=== PATIENT | female | born 1985 | race American Indian/Alaskan Native ===

== ENCOUNTER 2016-09-06 18:51 | Emergency (ER) | payer MEDICAID, OTHER ==
[2016-09-06 18:48] VITALS: BP 132/78
--- NOTE | 2016-09-06 18:55 | EDM.PDOC ---
ED HPI GENERAL MEDICAL PROBLEM - General Stated Complaint: SEIZURES, COMING BY AMBULANCE Time Seen by Provider: 09/06/16 18:50 Source of Information: Reports: Patient History Limitations: Reports: No Limitations - History of Present Illness INITIAL COMMENTS - FREE TEXT/NARRATIVE: states has h/o seizure, taking her dilantin. today @ work all the flashing lights and noise made her felt weird like a seizure is coming on, she went to her locker took another dilantin but still felt same. presently feeling ok. Headache Pain Score (Numeric/FACES): 5 - Related Data Allergies Allergy/AdvReac Type Severity Reaction Status Date / Time No Known Allergies Allergy Verified 09/06/16 19:02 Home Meds: Home Meds Acetaminophen [Tylenol] 650 mg PO Q6H PRN #3 tablet 09/06/15 [Rx] Phenytoin 100 mg PO TID 09/06/16 [History] Vit #108/Iron/FA [ One Tablet] 1 each PO DAILY 09/06/16 [ History] Past Medical History - Past Health History Medical/Surgical History: Denies Medical/Surgical History [employer] History: Reports: Other OB/BYN History: LMP: 12-02-2014 EDC: 09-08-2015 Musculoskeletal History: Reports: Fracture Other Musculoskeletal History: left forearm Neurological History: Reports: Seizure Psychiatric History: Reports: Addiction, Anxiety, Panic Attack - Infectious Disease History Infectious Disease History: Reports: Chicken Pox - Past Surgical History GI Surgical History: Reports: Cholecystectomy Neurological Surgical History: Reports: None Social & Family History - Family History Family Medical History: Noncontributory Respiratory: Reports: TB Other Respiratory Family Hisory: mother - Tobacco Use Smoking Status *Q: Never Smoker Years of Tobacco use: 13 Packs/Tins Daily: 0.1 Second Hand Smoke Exposure: No - Recreational Drug Use Recreational Drug Use: Yes Drug Use in Last 12 Months: Yes Recreational Drug Type: Reports: Marijuana/Hashish Recreational Drug Use Frequency: Socially ED ROS GENERAL - Review of Systems Review Of Systems: ROS reveals no pertinent complaints other than HPI. - Physical Exam Exam: See Below Exam Limited By: No Limitations General Appearance: Alert, WD/WN, Mild Distress, Other (distraught) Eye Exam: Bilateral Eye: PERRL (pupils ess ER @ 4mm) Ears: Hearing Grossly Normal Throat/Mouth: Normal Voice, No Airway Compromise Head Exam: Atraumatic Neck: Non-Tender, Full Range of Motion Respiratory/Chest: No Respiratory Distress Cardiovascular: Regular Rate, Rhythm GI/Abdominal: Soft, Non-Tender Neuro Exam (Abbreviated): Alert, Oriented, Normal Cognition, Normal Gait, No Motor/Sensory Deficits Psychiatric: Flat Affect Skin Exam: Warm, Dry, Normal Color Course - Vital Signs Last Recorded V/S: Last Vital Signs Temp 36.0 C 09/06/16 18:47 Pulse 68 09/06/16 18:47 Resp 20 09/06/16 18:47 BP 132/78 09/06/16 18:47 Pulse Ox 100 09/06/16 18:47 - Orders/Labs/Meds Labs: Laboratory Tests 09/06/16 09/06/16 09/06/16 Range/Units 19:10 19:10 19:10 WBC (5.0-10.0) 10^3/uL RBC (4.2-5.4) 10^6/uL Hgb (12.0-16.0) g/dL Hct (37.0-47.0) % MCV (80-100) fL MCH (27.0-34.0) pg MCHC (33.0-35.0) g/dL Plt Count (150-450) 10^3/uL Neut % (Auto) (42.2-75.2) % Lymph % (Auto) (20.5-50.1) % [facility] % (Auto) (2-8) % Eos % (Auto) (1.0-3.0) % Baso % (Auto) (0.0-1.0) % Sodium (135-145) mmol/L Potassium (3.6-5.0) mmol/L Chloride (101-111) mmol/L Carbon Dioxide (21.0-31.0) mmol/L Anion Gap BUN (7-18) mg/dL Creatinine (0.6-1.3) mg/dL Est Cr Clr Drug Dosing mL/min Estimated GFR (MDRD) BUN/Creatinine Ratio Glucose (74-105) mg/dL Calcium (8.4-10.2) mg/dl Total Bilirubin (0.2-1.0) mg/dL AST (10-42) IU/L ALT (10-60) IU/L Alkaline Phosphatase (42-121) IU/L Total Protein (6.7-8.2) g/dl Albumin (3.2-5.5) g/dl Globulin Albumin/Globulin Ratio Urine Color Yellow (YELLOW) Urine Appearance Slightly cloudy (CLEAR) Urine pH 5.5 (5.0-9.0) Ur Specific [place] <= 1.005 (1.005-1.030) Urine Protein Negative (NEGATIVE) Urine Glucose (UA) Negative (NEGATIVE) Urine Ketones Negative (NEGATIVE) Urine Occult Blood Negative (NEGATIVE) Urine Nitrite Negative (NEGATIVE) Urine Bilirubin Negative (NEGATIVE) Urine Urobilinogen 0.2 (0.2-1.0) mg/dL Ur Leukocyte Esterase Trace H (NEGATIVE) Urine HCG, Qual Negative Urine Opiates Screen Negative (NEGATIVE) Ur Oxycodone Screen Negative (NEGATIVE) Urine Methadone Screen Negative (NEGATIVE) Ur Barbiturates Screen Positive H (NEGATIVE) Phenytoin (10-20) ug/dL U Tricyclic Antidepress Negative (NEGATIVE) Ur Phencyclidine Scrn Negative (NEGATIVE) Ur Amphetamine Screen Negative (NEGATIVE) U Methamphetamines Scrn Negative (NEGATIVE) Urine MDMA Screen Negative (NEGATIVE) U Benzodiazepines Scrn Negative (NEGATIVE) Urine Cocaine Screen Negative (NEGATIVE) U Marijuana (THC) Screen Negative (NEGATIVE) 09/06/16 09/06/16 Range/Units 19:14 19:14 WBC 14.0 H (5.0-10.0) 10^3/uL RBC 5.03 (4.2-5.4) 10^6/uL Hgb 14.6 (12.0-16.0) g/dL Hct 43.6 (37.0-47.0) % MCV 86.7 (80-100) fL MCH 29.0 (27.0-34.0) pg MCHC 33.5 (33.0-35.0) g/dL Plt Count 396 (150-450) 10^3/uL Neut % (Auto) 69.2 (42.2-75.2) % Lymph % (Auto) 21.8 (20.5-50.1) % [facility] % (Auto) 7.1 (2-8) % Eos % (Auto) 1.8 (1.0-3.0) % Baso % (Auto) 0.1 (0.0-1.0) % Sodium 141 (135-145) mmol/L Potassium 3.6 (3.6-5.0) mmol/L Chloride 105 (101-111) mmol/L Carbon Dioxide 27.0 (21.0-31.0) mmol/L Anion Gap 12.6 BUN 13 (7-18) mg/dL Creatinine 0.6 (0.6-1.3) mg/dL Est Cr Clr Drug Dosing 124.49 mL/min Estimated GFR (MDRD) > 60 BUN/Creatinine Ratio 21.66 Glucose 100 (74-105) mg/dL Calcium 9.2 (8.4-10.2) mg/dl Total Bilirubin 0.3 (0.2-1.0) mg/dL AST 23 (10-42) IU/L ALT 50 (10-60) IU/L Alkaline Phosphatase 132 H (42-121) IU/L Total Protein 8.2 (6.7-8.2) g/dl Albumin 4.3 (3.2-5.5) g/dl Globulin 3.9 Albumin/Globulin Ratio 1.10 Urine Color (YELLOW) Urine Appearance (CLEAR) Urine pH (5.0-9.0) Ur Specific [place] (1.005-1.030) Urine Protein (NEGATIVE) Urine Glucose (UA) (NEGATIVE) Urine Ketones (NEGATIVE) Urine Occult Blood (NEGATIVE) Urine Nitrite (NEGATIVE) Urine Bilirubin (NEGATIVE) Urine Urobilinogen (0.2-1.0) mg/dL Ur Leukocyte Esterase (NEGATIVE) Urine HCG, Qual Urine Opiates Screen (NEGATIVE) Ur Oxycodone Screen (NEGATIVE) Urine Methadone Screen (NEGATIVE) Ur Barbiturates Screen (NEGATIVE) Phenytoin 7.4 L (10-20) ug/dL U Tricyclic Antidepress (NEGATIVE) Ur Phencyclidine Scrn (NEGATIVE) Ur Amphetamine Screen (NEGATIVE) U Methamphetamines Scrn (NEGATIVE) Urine MDMA Screen (NEGATIVE) U Benzodiazepines Scrn (NEGATIVE) Urine Cocaine Screen (NEGATIVE) U Marijuana (THC) Screen (NEGATIVE) - Re-Assessments/Exams Free Text/Narrative Re-Assessment/Exam: 09/06/16 20:02 re-exam; sleeping arousable no c/o. results discussed with pt. Departure - Departure Time of Disposition: 20:03 Disposition: Home, Self-Care 01 Condition: Good Clinical Impression: Seizure disorder, Subtherapeutic phenytoin level - Discharge Information Instructions: Epilepsy, [id number] Forms: ED Department Discharge Additional Instructions: 1) take 2 extra dilantin tonight 2) rest 3) follow up at clinic or recheck as needed
[2016-09-06 19:39] LABS: CHLORIDE,CL 105 mmol/L (101-111); SODIUM,NA 141 mmol/L (135-145)
== END 2016-09-06 20:10 | disposition home or self-care (01) ==
LOC: DL.ED 18:51
DX: G40.909 Epilepsy, unspecified, not intractable, without status epilepticus (principal); R79.89 Other specified abnormal findings of blood chemistry; Z90.49 Acquired absence of other specified parts of digestive tract
CPT/HCPCS: 36415; 80053; 80185; 80305; 81003; 81025; 85025; 99285

== ENCOUNTER 2016-11-19 18:19 | Emergency (ER) | payer OTHER ==
[2016-11-19 20:02] VITALS: BP 117/67
== END 2016-11-19 19:26 | disposition left against medical advice (07) ==
LOC: DL.ED 18:19
DX: Z53.21 Procedure and treatment not carried out due to patient leaving prior to being seen by health care provider (principal)

== ENCOUNTER 2017-06-06 12:44 | Emergency (ER) | payer MEDICAID, OTHER ==
[2017-06-06] MEDS ORDERED: Phenytoin 1,000 MG in Sodium Chloride 0.9% 100 ML IV ONE (13:43)
[2017-06-06 14:19] LABS: ANION GAP 10.5; CHLORIDE,CL 104 mmol/L (101-111); SODIUM,NA 136 mmol/L (135-145)
--- NOTE | 2017-06-06 14:25 | EDM.PDOC ---
ED HPI GENERAL MEDICAL PROBLEM - General Chief Complaint: Neuro Symptoms/Deficits Stated Complaint: BY AMBULANCE Time Seen by Provider: 06/06/17 14:00 Source of Information: Reports: Patient, EMS, EMS Notes Reviewed, RN, RN Notes Reviewed - History of Present Illness INITIAL COMMENTS - FREE TEXT/NARRATIVE: Patient presents after a seizure x3 at home. Family called EMS and wanted patient seen. She has known seizure history. She has not been taking her meds per family. She was combative for BLS-ACLS called and 4mg IV Versed prior to transport was given to patient. No further seizure activtiy. Patient states she is taking her meds, last seizure 2 months ago. She has had nausea and vomiting after the Versed. No family avilable to determine length of seizure or proximity to each. Onset: Today Duration: Getting Worse Location: Reports: Generalized Severity: Moderate Improves with: Reports: None Worsens with: Reports: None Associated Symptoms: Reports: No Other Symptoms Head Pain Score (Numeric/FACES): 9 - Related Data Allergies Allergy/AdvReac Type Severity Reaction Status Date / Time No Known Allergies Allergy Verified 11/19/16 20:01 Home Meds: Home Meds Acetaminophen [Tylenol] 650 mg PO Q6H PRN #3 tablet 09/06/15 [Rx] Phenytoin 100 mg PO TID 09/06/16 [History] Past Medical History - Past Health History Medical/Surgical History: Denies Medical/Surgical History Cardiovascular History: Reports: Other (See Below) Other Cardiovascular History: hypokalemia [employer]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: 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: 12-02-2014 EDC: 09-08-2015 Musculoskeletal History: Reports: Fracture Other Musculoskeletal History: left forearm Neurological History: Reports: Seizure Psychiatric History: Reports: Addiction, Anxiety, Panic Attack - Infectious Disease History Infectious Disease History: Reports: Chicken Pox - Past Surgical History GI Surgical History: Reports: Cholecystectomy Neurological Surgical History: Reports: None Social & Family History - Family History Family Medical History: Noncontributory Respiratory: Reports: TB Other Respiratory Family Hisory: mother - Tobacco Use Smoking Status *Q: Unknown Ever Smoked Years of Tobacco use: 14 Packs/Tins Daily: 0.1 Second Hand Smoke Exposure: Yes - Caffeine Use Caffeine Use: Reports: Other - Recreational Drug Use Recreational Drug Use: No Drug Use in Last 12 Months: Yes Recreational Drug Type: Reports: Marijuana/Hashish Recreational Drug Use Frequency: Weekly ED ROS GENERAL - Review of Systems Review Of Systems: ROS reveals no pertinent complaints other than HPI. - Physical Exam Exam: See Below Exam Limited By: No Limitations General Appearance: Alert, Other (oriented) Eye Exam: Bilateral Eye: PERRL (3mm) Ears: Normal External Exam, Normal Canal, Hearing Grossly Normal, Normal TMs Nose: Normal Inspection, Normal Mucosa, No Blood Throat/Mouth: Normal Inspection, Normal Lips, Normal Teeth, Normal Gums, Normal Oropharynx, Normal Voice, No Airway Compromise Head Exam: Atraumatic, Normocephalic Neck: Normal Inspection, Supple, Non-Tender, Full Range of Motion Respiratory/Chest: No: Rales, Wheezing Cardiovascular: Regular Rate, Rhythm GI/Abdominal: Soft, Non-Tender (Female) Exam: Deferred Rectal (Female) Exam: Deferred Neuro Exam (Abbreviated): Alert, Oriented, Other (no sign of trauma.) Back Exam: Normal Inspection, Full Range of Motion, NT Extremities: Normal Inspection, Normal Range of Motion, Non-Tender, No Pedal Edema, Normal Capillary Refill Psychiatric: Other (irritable but cooperative.) Skin Exam: Other (no bruising) Course - Vital Signs Last Recorded V/S: Last Vital Signs Temp 98.6 F 06/06/17 13:25 Pulse 101 H 06/06/17 13:25 Resp 18 06/06/17 13:25 BP 154/84 H 06/06/17 13:25 Pulse Ox 98 06/06/17 13:25 - Orders/Labs/Meds Orders: Active Orders 24 hr Category Date Time Status DRUG SCREEN URINE BIORAD [URCHEM] Stat Lab 06/06/17 13:27 Ordered Labs: Laboratory Tests 06/06/17 06/06/17 06/06/17 Range/Units 13:27 13:27 13:55 WBC 17.8 H (5.0-10.0) 10^3/uL RBC 4.96 (4.2-5.4) 10^6/uL Hgb 14.4 (12.0-16.0) g/dL Hct 43.2 (37.0-47.0) % MCV 87.1 (80-100) fL MCH 29.0 (27.0-34.0) pg MCHC 33.3 (33.0-35.0) g/dL Plt Count 413 (150-450) 10^3/uL Neut % (Auto) 74.9 (42.2-75.2) % Lymph % (Auto) 18.1 L (20.5-50.1) % [place] % (Auto) 5.8 (2-8) % Eos % (Auto) 1.0 (1.0-3.0) % Baso % (Auto) 0.2 (0.0-1.0) % Add Manual Diff Yes Neutrophils % (Manual) 70 (42-75) % Band Neutrophils % 2 % Lymphocytes % (Manual) 22 (20-50) % Monocytes % (Manual) 5 (2-8) % Eosinophils % (Manual) 1 (1-3) % Sodium (135-145) mmol/L Potassium (3.6-5.0) mmol/L Chloride (101-111) mmol/L Carbon Dioxide (21.0-31.0) mmol/L Anion Gap BUN (7-18) mg/dL Creatinine (0.6-1.3) mg/dL Est Cr Clr Drug Dosing mL/min Estimated GFR (MDRD) BUN/Creatinine Ratio Glucose (74-105) mg/dL Calcium (8.4-10.2) mg/dl Total Bilirubin (0.2-1.0) mg/dL AST (10-42) IU/L ALT (10-60) IU/L Alkaline Phosphatase (42-121) IU/L Total Protein (6.7-8.2) g/dl Albumin (3.2-5.5) g/dl Globulin Albumin/Globulin Ratio Urine HCG, Qual Negative Urine Opiates Screen Negative (NEGATIVE) Ur Oxycodone Screen Negative (NEGATIVE) Urine Methadone Screen Negative (NEGATIVE) Ur Barbiturates Screen Positive H (NEGATIVE) Phenytoin (10-20) ug/dL U Tricyclic Antidepress Negative (NEGATIVE) Ur Phencyclidine Scrn Negative (NEGATIVE) Ur Amphetamine Screen Negative (NEGATIVE) U Methamphetamines Scrn Negative (NEGATIVE) Urine MDMA Screen Negative (NEGATIVE) U Benzodiazepines Scrn Negative (NEGATIVE) Urine Cocaine Screen Negative (NEGATIVE) U Marijuana (THC) Screen Positive H (NEGATIVE) Ethyl Alcohol mg/dL 06/06/17 06/06/17 Range/Units 13:55 13:55 WBC (5.0-10.0) 10^3/uL RBC (4.2-5.4) 10^6/uL Hgb (12.0-16.0) g/dL Hct (37.0-47.0) % MCV (80-100) fL MCH (27.0-34.0) pg MCHC (33.0-35.0) g/dL Plt Count (150-450) 10^3/uL Neut % (Auto) (42.2-75.2) % Lymph % (Auto) (20.5-50.1) % [place] % (Auto) (2-8) % Eos % (Auto) (1.0-3.0) % Baso % (Auto) (0.0-1.0) % Add Manual Diff Neutrophils % (Manual) (42-75) % Band Neutrophils % % Lymphocytes % (Manual) (20-50) % Monocytes % (Manual) (2-8) % Eosinophils % (Manual) (1-3) % Sodium 136 (135-145) mmol/L Potassium 3.5 L (3.6-5.0) mmol/L Chloride 104 (101-111) mmol/L Carbon Dioxide 25.0 (21.0-31.0) mmol/L Anion Gap 10.5 BUN 22 H (7-18) mg/dL Creatinine 0.5 L (0.6-1.3) mg/dL Est Cr Clr Drug Dosing 149.39 mL/min Estimated GFR (MDRD) > 60 BUN/Creatinine Ratio 44.00 Glucose 118 H (74-105) mg/dL Calcium 8.8 (8.4-10.2) mg/dl Total Bilirubin 0.6 (0.2-1.0) mg/dL AST 30 (10-42) IU/L ALT 65 H (10-60) IU/L Alkaline Phosphatase 123 H (42-121) IU/L Total Protein 8.2 (6.7-8.2) g/dl Albumin 4.2 (3.2-5.5) g/dl Globulin 4.0 Albumin/Globulin Ratio 1.05 Urine HCG, Qual Urine Opiates Screen (NEGATIVE) Ur Oxycodone Screen (NEGATIVE) Urine Methadone Screen (NEGATIVE) Ur Barbiturates Screen (NEGATIVE) Phenytoin 3.0 L (10-20) ug/dL U Tricyclic Antidepress (NEGATIVE) Ur Phencyclidine Scrn (NEGATIVE) Ur Amphetamine Screen (NEGATIVE) U Methamphetamines Scrn (NEGATIVE) Urine MDMA Screen (NEGATIVE) U Benzodiazepines Scrn (NEGATIVE) Urine Cocaine Screen (NEGATIVE) U Marijuana (THC) Screen (NEGATIVE) Ethyl Alcohol < 5 mg/dL Meds: Medications Discontinued Medications Generic Name Dose Route Start Last Admin Trade Name Freq PRN Reason Stop Dose Admin Phenytoin Sodium 1,000 mg/ 120 mls @ 240 mls/hr 06/06/17 13:43 06/06/17 14:05 Sodium Chloride IV 06/06/17 13:44 240 mls/hr ONETIME ONE Administration Departure - Departure Time of Disposition: 14:52 Disposition: Home, Self-Care 01 Condition: Fair Clinical Impression: Seizure, Seizure disorder, Subtherapeutic phenytoin level - Discharge Information Instructions: Seizure, Adult Forms: ED Department Discharge Additional Instructions: Take medication as prescribed Follow up Thursday with Primary care to recheck Dilantin level rest today - My Orders Last 24 Hours: My Active Orders 06/06/17 13:27 DRUG SCREEN URINE BIORAD [URCHEM] Stat - Assessment/Plan Last 24 Hours: My Active Orders 06/06/17 13:27 DRUG SCREEN URINE BIORAD [URCHEM] Stat
[2017-06-06 15:13] VITALS: BP 121/77
== END 2017-06-06 15:08 | disposition home or self-care (01) ==
LOC: DL.ED 12:44
DX: G40.909 Epilepsy, unspecified, not intractable, without status epilepticus (principal); R79.89 Other specified abnormal findings of blood chemistry; Z77.22 Contact with and (suspected) exposure to environmental tobacco smoke (acute) (chronic)
CPT/HCPCS: 36415; 80053; 80185; 80305; 81025; 85025; 96365; 99285; G0480; J1165; J7050; 99284

== ENCOUNTER 2017-06-06 15:24 | Emergency (ER) | payer MEDICAID, OTHER ==
[2017-06-06] MEDS ORDERED: LORazepam 2 MG/ML Syringe IM ONE (15:35)
[2017-06-06 15:41] VITALS: BP 122/83
--- NOTE | 2017-06-06 17:09 | EDM.PDOC ---
ED HPI GENERAL MEDICAL PROBLEM - General Chief Complaint: Neurological Problem Stated Complaint: 2ND VISIT Time Seen by Provider: 06/06/17 15:35 Source of Information: Reports: Patient History Limitations: Reports: No Limitations - History of Present Illness INITIAL COMMENTS - FREE TEXT/NARRATIVE: ED via [facility] with report of 3 seizures today. On arrival of BLS patient combative , alert. Patient given 4 mg ativan by EMS and Dilantin 1 gm IV during ED stay, c.o not feeling well after finding that aunt unable to pick her up right away and that she would be waiting in waiting room for her. Hand Pain Score (Numeric/FACES): 5 - Related Data Allergies Allergy/AdvReac Type Severity Reaction Status Date / Time No Known Allergies Allergy Verified 06/06/17 15:41 Home Meds: Home Meds Acetaminophen [Tylenol] 650 mg PO Q6H PRN #3 tablet 09/06/15 [Rx] Phenytoin 100 mg PO TID 09/06/16 [History] Past Medical History - Past Health History Medical/Surgical History: Denies Medical/Surgical History HEENT History: Reports: None Cardiovascular History: Reports: Other (See Below) Other Cardiovascular History: hypokalemia Respiratory History: Reports: None Gastrointestinal History: Reports: None Genitourinary History: Reports: None [employer]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: 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: 12-02-2014 EDC: 09-08-2015 Musculoskeletal History: Reports: Fracture Other Musculoskeletal History: left forearm Neurological History: Reports: Seizure Psychiatric History: Reports: Addiction, Anxiety, Panic Attack Endocrine/Metabolic History: Reports: None Hematologic History: Reports: None Immunologic History: Reports: None Oncologic (Cancer) History: Reports: None Dermatologic History: Reports: None - Infectious Disease History Infectious Disease History: Reports: Chicken Pox - Past Surgical History GI Surgical History: Reports: Cholecystectomy Neurological Surgical History: Reports: None Social & Family History - Family History Family Medical History: Noncontributory Respiratory: Reports: TB Other Respiratory Family Hisory: mother - Tobacco Use Smoking Status *Q: Current Every Day Smoker Years of Tobacco use: 11 Packs/Tins Daily: 0.5 Second Hand Smoke Exposure: No - Caffeine Use Caffeine Use: Reports: None - Recreational Drug Use Recreational Drug Use: No Drug Use in Last 12 Months: Yes Recreational Drug Type: Reports: Marijuana/Hashish Recreational Drug Use Frequency: Weekly ED ROS GENERAL - Review of Systems Review Of Systems: ROS reveals no pertinent complaints other than HPI. - Physical Exam Exam: See Below Exam Limited By: No Limitations General Appearance: Alert, Anxious Eye Exam: Bilateral Eye: EOMI, PERRL Ears: Normal External Exam Nose: Normal Inspection Throat/Mouth: Normal Inspection Head Exam: Atraumatic, Normocephalic Neck: Normal Inspection Respiratory/Chest: No Respiratory Distress, Lungs Clear, Normal Breath Sounds Cardiovascular: Normal Peripheral Pulses, Regular Rate, Rhythm GI/Abdominal: Normal Bowel Sounds Neuro Exam (Abbreviated): Alert, Oriented, Normal Cognition, Other (Answers questions appropriately, follows directions easily, good response time, Twitching absent with distraction') Course - Vital Signs Last Recorded V/S: Last Vital Signs Temp 97.8 F 06/06/17 15:35 Pulse 88 06/06/17 15:35 Resp 20 06/06/17 15:35 BP 122/83 06/06/17 15:35 Pulse Ox 100 06/06/17 15:35 - Orders/Labs/Meds Labs: Laboratory Tests 06/06/17 Range/Units 15:32 POC Glucose 110 H (70-105) mg/dl Meds: Medications Discontinued Medications Generic Name Dose Route Start Last Admin Trade Name Justin PRN Reason Stop Dose Admin Lorazepam 0.5 mg 06/06/17 15:35 06/06/17 15:45 Ativan IM 06/06/17 15:36 0.5 mg ONETIME ONE Administration Departure - Departure Time of Disposition: 15:55 Disposition: Home, Self-Care 01 Clinical Impression: Seizure disorder - Discharge Information Instructions: Seizure, Adult, [id number] Forms: ED Department Discharge Additional Instructions: Rest Take medications as prescribed
== END 2017-06-06 17:20 | disposition home or self-care (01) ==
LOC: DL.ED 15:24
DX: G40.909 Epilepsy, unspecified, not intractable, without status epilepticus (principal); F17.210 Nicotine dependence, cigarettes, uncomplicated
CPT/HCPCS: 82962; 96372; 99284; J2060; 99283

== ENCOUNTER 2017-07-23 06:37 | Emergency (ER) | payer MEDICAID, OTHER ==
[2017-07-23 06:42] VITALS: BP 102/55
[2017-07-23] MEDS ORDERED: Phenytoin 100 MG Cap.ER PO ONE (07:20)
--- NOTE | 2017-07-23 07:26 | EDM.PDOC ---
ED HPI GENERAL MEDICAL PROBLEM - General Chief Complaint: Neurological Problem Stated Complaint: IN BY AMBULANCE Time Seen by Provider: 07/23/17 07:26 Source of Information: Reports: Patient, Old Records, RN, RN Notes Reviewed History Limitations: Reports: No Limitations - History of Present Illness INITIAL COMMENTS - FREE TEXT/NARRATIVE: Pt arrives by ambulance with report of a witnessed seizure. Pt has a history of epilepsy and has been out of her dilantin x6 days. She has taken some phenobarbital from her aunt. She denies any injury. EMS and loan servicing officer report pt had approx. 30 min. postictal phase. Pt has no complaints at this time. The duration of the seizure is unknown, but not believed to be more than one minute per pt and EMS report. Onset: Today Duration: Chronic Location: Reports: Generalized Severity: Moderate Improves with: Reports: None Worsens with: Reports: None Associated Symptoms: Reports: No Other Symptoms - Related Data Allergies Allergy/AdvReac Type Severity Reaction Status Date / Time No Known Allergies Allergy Verified 06/06/17 15:41 Home Meds: Home Meds Acetaminophen [Tylenol] 650 mg PO Q6H PRN #3 tablet 09/06/15 [Rx] Phenytoin 100 mg PO TID 09/06/16 [History] Past Medical History - Past Health History Medical/Surgical History: Denies Medical/Surgical History HEENT History: Reports: None Cardiovascular History: Reports: Other (See Below) Other Cardiovascular History: hypokalemia Respiratory History: Reports: None Gastrointestinal History: Reports: None Genitourinary History: Reports: None 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 OB/BYN History: LMP: 12-02-2014 EDC: 09-08-2015 Musculoskeletal History: Reports: Fracture Other Musculoskeletal History: left forearm Neurological History: Reports: Seizure Psychiatric History: Reports: Addiction, Anxiety, Panic Attack Endocrine/Metabolic History: Reports: None Hematologic History: Reports: None Immunologic History: Reports: None Oncologic (Cancer) History: Reports: None Dermatologic History: Reports: None - Infectious Disease History Infectious Disease History: Reports: Chicken Pox - Past Surgical History GI Surgical History: Reports: Cholecystectomy Neurological Surgical History: Reports: None Social & Family History - Family History Family Medical History: Noncontributory Respiratory: Reports: TB Other Respiratory Family Hisory: mother - Caffeine Use Caffeine Use: Reports: None - Living Situation & Occupation Living situation: Reports: with Family Occupation: Unemployed ED ROS GENERAL - Review of Systems Review Of Systems: ROS reveals no pertinent complaints other than HPI. - Physical Exam Exam: See Below Exam Limited By: No Limitations General Appearance: Alert, WD/WN, No Apparent Distress, Obese Eye Exam: Bilateral Eye: EOMI, Normal Inspection, PERRL Ears: Normal External Exam, Normal Canal, Hearing Grossly Normal, Normal TMs Nose: Normal Inspection, Normal Mucosa, No Blood Throat/Mouth: Normal Lips, Normal Oropharynx, Normal Voice, No Airway Compromise. No: Evidence of Tongue Biting Head Exam: Atraumatic, Normocephalic Neck: Normal Inspection, Supple, Non-Tender, Full Range of Motion Respiratory/Chest: No Respiratory Distress, Lungs Clear, Normal Breath Sounds, No Accessory Muscle Use, Chest Non-Tender Cardiovascular: Normal Peripheral Pulses, Regular Rate, Rhythm, No Edema, No Gallop, No JVD, No Murmur, No Rub GI/Abdominal: Normal Bowel Sounds, Soft, Non-Tender, No Distention, Other ( benign obese abdomen) (Female) Exam: Deferred Rectal (Female) Exam: Deferred Neuro Exam (Abbreviated): Alert, Oriented, CN II-XII Intact, Normal Cognition, Normal Gait, No Motor/Sensory Deficits Back Exam: Normal Inspection, Full Range of Motion Extremities: Normal Inspection, Normal Range of Motion, Non-Tender, No Pedal Edema, Normal Capillary Refill Psychiatric: Normal Affect, Normal Mood Skin Exam: Warm, Dry, Intact, Normal Color, No Rash Course - Vital Signs Last Recorded V/S: Last Vital Signs Temp 36.4 C 07/23/17 06:40 Pulse 94 07/23/17 06:40 Resp 16 07/23/17 06:40 BP 102/55 L 07/23/17 06:40 Pulse Ox 95 07/23/17 06:40 - Orders/Labs/Meds Orders: Active Orders 24 hr Category Date Time Status CBC WITH AUTO DIFF [HEME] Stat Lab 07/23/17 07:20 Ordered COMPREHENSIVE METABOLIC PN,CMP [CHEM] Stat Lab 07/23/17 07:20 Ordered DILANTIN,PHENYTOIN [CHEM] Stat Lab 07/23/17 07:20 Ordered MANUAL DIFFERENTIAL QA/NC [HEME] Stat Lab 07/23/17 07:26 Results Labs: Laboratory Tests 07/23/17 07/23/17 Range/Units 06:48 07:26 WBC 13.8 H (5.0-10.0) 10^3/uL RBC 4.79 (4.2-5.4) 10^6/uL Hgb 13.8 (12.0-16.0) g/dL Hct 41.5 (37.0-47.0) % MCV 86.6 (80-100) fL MCH 28.8 (27.0-34.0) pg MCHC 33.3 (33.0-35.0) g/dL Plt Count 359 (150-450) 10^3/uL Neut % (Auto) 71.3 (42.2-75.2) % Lymph % (Auto) 18.4 L (20.5-50.1) % [place] % (Auto) 7.2 (2-8) % Eos % (Auto) 2.9 (1.0-3.0) % Baso % (Auto) 0.2 (0.0-1.0) % Add Manual Diff Yes Urine Opiates Screen Negative (NEGATIVE) Ur Oxycodone Screen Negative (NEGATIVE) Urine Methadone Screen Negative (NEGATIVE) Ur Barbiturates Screen Positive H (NEGATIVE) U Tricyclic Antidepress Negative (NEGATIVE) Ur Phencyclidine Scrn Negative (NEGATIVE) Ur Amphetamine Screen Negative (NEGATIVE) U Methamphetamines Scrn Negative (NEGATIVE) Urine MDMA Screen Negative (NEGATIVE) U Benzodiazepines Scrn Negative (NEGATIVE) Urine Cocaine Screen Negative (NEGATIVE) U Marijuana (THC) Screen Positive H (NEGATIVE) Meds: Medications Discontinued Medications Generic Name Dose Route Start Last Admin Trade Name Justin PRN Reason Stop Dose Admin Phenytoin Sodium 200 mg 07/23/17 07:20 07/23/17 07:29 Phenytoin PO 07/23/17 07:21 200 mg ONETIME ONE Administration Departure - Departure Time of Disposition: 07:34 Disposition: Home, Self-Care 01 Condition: Good Clinical Impression: Seizure, Seizure disorder, Subtherapeutic phenytoin level, Noncompliance with medications - Discharge Information Instructions: Epilepsy, [id number] Forms: ED Department Discharge Additional Instructions: Rx: Dilantin ER 100mg Follow up in clinic in the next 10 days for recheck of dilantin blood level and medication refill. - My Orders Last 24 Hours: My Active Orders 07/23/17 07:20 CBC WITH AUTO DIFF [HEME] Stat COMPREHENSIVE METABOLIC PN,CMP [CHEM] Stat DILANTIN,PHENYTOIN [CHEM] Stat 07/23/17 07:26 MANUAL DIFFERENTIAL QA/NC [HEME] Stat - Assessment/Plan Last 24 Hours: My Active Orders 07/23/17 07:20 CBC WITH AUTO DIFF [HEME] Stat COMPREHENSIVE METABOLIC PN,CMP [CHEM] Stat DILANTIN,PHENYTOIN [CHEM] Stat 07/23/17 07:26 MANUAL DIFFERENTIAL QA/NC [HEME] Stat
[2017-07-23 07:53] LABS: ANION GAP 10.5; CHLORIDE,CL 107 mmol/L (101-111); SODIUM,NA 138 mmol/L (135-145)
[2017-07-23] MEDS ORDERED: Diazepam 5 MG/ML 10 ML Vial MDV ONE (09:06)
== END 2017-07-23 07:50 | disposition home or self-care (01) ==
LOC: DL.ED 06:37
DX: G40.909 Epilepsy, unspecified, not intractable, without status epilepticus (principal); R89.2 Abnormal level of other drugs, medicaments and biological substances in specimens from other organs, systems and tissues; Z91.19 Patient's noncompliance with other medical treatment and regimen; Z79.899 Other long term (current) drug therapy
CPT/HCPCS: 36415; 80053; 80185; 80305; 85025; 99285; A9270

== ENCOUNTER 2017-07-23 09:05 | Observation (INO) | payer MEDICAID, OTHER ==
--- NOTE | 2017-07-23 09:06 | EDM.PDOC ---
ED HPI GENERAL MEDICAL PROBLEM - General Chief Complaint: Neurological Problem Stated Complaint: IN BY AMBULANCE Time Seen by Provider: 07/23/17 09:06 Source of Information: Reports: Patient, EMS, Old Records, RN, RN Notes Reviewed History Limitations: Reports: Altered Mental Status - History of Present Illness INITIAL COMMENTS - FREE TEXT/NARRATIVE: Pt discharged from this ER after being seen for a seizure in the last 2 hours now returns by ambulance from [facility] with report of a seizure. EMS reports the seizure had resolved before they arrived on scene, and pt was found on the floor at [facility] minimally responsive and postictal, but then began screaming and was confused. Pt was postictal on arrival to ER. Triage nurse reports pt had bit her tongue. Pt c/o nausea, she denies head injury, or any other injury. She denies drug use. Onset: Today Duration: Resolved Prior to Arrival Severity: Severe Improves with: Reports: None Worsens with: Reports: None Associated Symptoms: Reports: No Other Symptoms - Related Data Allergies Allergy/AdvReac Type Severity Reaction Status Date / Time No Known Allergies Allergy Verified 07/23/17 09:10 Home Meds: Home Meds Acetaminophen [Tylenol] 650 mg PO Q6H PRN #3 tablet 09/06/15 [Rx] Phenytoin 100 mg PO TID 09/06/16 [History] Past Medical History - Past Health History Medical/Surgical History: Denies Medical/Surgical History HEENT History: Reports: None Cardiovascular History: Reports: Other (See Below) Other Cardiovascular History: hypokalemia Respiratory History: Reports: None Gastrointestinal History: Reports: None Genitourinary History: Reports: None 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 OB/BYN History: LMP: 12-02-2014 EDC: 09-08-2015 Musculoskeletal History: Reports: Fracture Other Musculoskeletal History: left forearm Neurological History: Reports: Seizure Psychiatric History: Reports: Addiction, Anxiety, Panic Attack Endocrine/Metabolic History: Reports: None Hematologic History: Reports: None Immunologic History: Reports: None Oncologic (Cancer) History: Reports: None Dermatologic History: Reports: None - Infectious Disease History Infectious Disease History: Reports: Chicken Pox - Past Surgical History GI Surgical History: Reports: Cholecystectomy Neurological Surgical History: Reports: None Social & Family History - Family History Family Medical History: Noncontributory Respiratory: Reports: TB Other Respiratory Family Hisory: mother - Caffeine Use Caffeine Use: Reports: None - Living Situation & Occupation Living situation: Reports: with Family Occupation: Unemployed ED ROS GENERAL - Review of Systems Review Of Systems: Unable To Obtain - Physical Exam Exam: See Below Exam Limited By: Uncooperative General Appearance: Alert, No Apparent Distress, Obese, Other (postictal) Eye Exam: Bilateral Eye: Normal Inspection Ears: Normal External Exam, Hearing Grossly Normal Nose: Normal Inspection, Normal Mucosa, No Blood Throat/Mouth: Normal Lips, Normal Voice, No Airway Compromise, Evidence of Tongue Biting Head Exam: Atraumatic, Normocephalic Neck: Normal Inspection, Supple, Non-Tender, Full Range of Motion. No: Lymphadenopathy (L), Lymphadenopathy (R) Respiratory/Chest: No Respiratory Distress, Lungs Clear, Normal Breath Sounds, No Accessory Muscle Use, Chest Non-Tender Cardiovascular: Normal Peripheral Pulses, Regular Rate, Rhythm, Tachycardia GI/Abdominal: Normal Bowel Sounds, Soft, Non-Tender, No Distention (Female) Exam: Deferred Rectal (Female) Exam: Deferred Neuro Exam (Abbreviated): Confused (postictal for approx. 30 mins. ) Back Exam: Normal Inspection Psychiatric: Anxious Skin Exam: Warm, Dry, Intact, Normal Color, No Rash Course - Vital Signs Last Recorded V/S: Last Vital Signs Temp 37.1 C 07/23/17 09:10 Pulse 129 H 07/23/17 09:10 Resp 24 H 07/23/17 09:10 BP Pulse Ox 94 L 07/23/17 09:10 - Orders/Labs/Meds Orders: Active Orders 24 hr Category Date Time Status DRUG SCREEN URINE BIORAD [URCHEM] Stat Lab 07/23/17 09:43 Ordered HCG QUALITATIVE,URINE [URCHEM] Stat Lab 07/23/17 09:43 Ordered UA W/MICROSCOPIC [URIN] Stat Lab 07/23/17 09:43 Ordered Labs: Laboratory Tests 07/23/17 07/23/17 07/23/17 Range/Units 09:43 09:43 09:43 Urine Color Yellow (YELLOW) Urine Appearance Slightly cloudy (CLEAR) Urine pH 5.5 (5.0-9.0) Ur Specific [place] 1.020 (1.005-1.030) Urine Protein 30 H (NEGATIVE) Urine Glucose (UA) Negative (NEGATIVE) Urine Ketones Negative (NEGATIVE) Urine Occult Blood Large H (NEGATIVE) Urine Nitrite Negative (NEGATIVE) Urine Bilirubin Negative (NEGATIVE) Urine Urobilinogen 0.2 (0.2-1.0) mg/dL Ur Leukocyte Esterase Negative (NEGATIVE) Urine RBC 75-100 H /HPF Urine WBC 0-5 (0-5/HPF) /HPF Ur Epithelial Cells Few /HPF Urine Bacteria Few (0-FEW/HPF) /HPF Urine Mucus Many H /LPF Urine HCG, Qual Negative Urine Opiates Screen Negative (NEGATIVE) Ur Oxycodone Screen Negative (NEGATIVE) Urine Methadone Screen Negative (NEGATIVE) Ur Barbiturates Screen Positive H (NEGATIVE) U Tricyclic Antidepress Negative (NEGATIVE) Ur Phencyclidine Scrn Negative (NEGATIVE) Ur Amphetamine Screen Negative (NEGATIVE) U Methamphetamines Scrn Negative (NEGATIVE) Urine MDMA Screen Negative (NEGATIVE) U Benzodiazepines Scrn Negative (NEGATIVE) Urine Cocaine Screen Negative (NEGATIVE) U Marijuana (THC) Screen Positive H (NEGATIVE) Lab from prior visit today reviewed. Meds: Medications Discontinued Medications Generic Name Dose Route Start Last Admin Trade Name Justin PRN Reason Stop Dose Admin Diazepam 10 mg 07/23/17 09:07 07/23/17 09:09 Valium IM 07/23/17 09:08 10 mg ONETIME ONE Administration Levetiracetam 3,000 mg/ Sodium 130 mls @ 400 mls/hr 07/23/17 09:07 07/23/17 09:22 Chloride IV 07/23/17 09:21 400 mls/hr ONETIME ONE Administration Sodium Chloride 1,000 mls @ 999 mls/hr 07/23/17 09:45 07/23/17 09:22 Normal Saline IV 07/23/17 10:45 999 mls/hr .BOLUS ONE Administration Ondansetron HCl 4 mg 07/23/17 09:45 07/23/17 09:56 Zofran IV 07/23/17 09:46 4 mg ONETIME ONE Administration Ondansetron HCl 4 mg 07/23/17 10:00 07/23/17 10:05 Zofran IV 07/23/17 10:01 4 mg ONETIME ONE Administration Promethazine HCl 50 mg 07/23/17 10:07 07/23/17 10:16 Phenergan IM 07/23/17 10:08 50 mg ONETIME ONE Administration - Re-Assessments/Exams Free Text/Narrative Re-Assessment/Exam: 07/23/17 Pt sedate following Diazepam, Keppra, and promethazine in ER. Plan to admit to obs. status to hospitalist. Departure - Departure Time of Disposition: 10:28 (admitted to Dr. Wood) Disposition: Refer to Observation Condition: Fair Clinical Impression: Seizure, Seizure disorder, Subtherapeutic phenytoin level, Noncompliance with medications - Discharge Information Forms: ED Department Discharge - My Orders Last 24 Hours: My Active Orders 07/23/17 09:43 DRUG SCREEN URINE BIORAD [URCHEM] Stat HCG QUALITATIVE,URINE [URCHEM] Stat UA W/MICROSCOPIC [URIN] Stat - Assessment/Plan Last 24 Hours: My Active Orders 07/23/17 09:43 DRUG SCREEN URINE BIORAD [URCHEM] Stat HCG QUALITATIVE,URINE [URCHEM] Stat UA W/MICROSCOPIC [URIN] Stat
[2017-07-23] MEDS ORDERED: Diazepam 5 MG/ML 10 ML Vial MDV IM ONE (09:07)
[2017-07-23] MEDS ORDERED: Sodium Chloride 0.9% 1,000 ML IV ONE (09:45)
[2017-07-23] MEDS ORDERED: Ondansetron 4 MG/2 ML SDV IV ONE ×2 (09:45→10:00)
[2017-07-23] MEDS ORDERED: Promethazine 25 MG/ML SDV IM ONE (10:07)
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
[2017-07-23] MEDS: Phenytoin 100 MG Cap.ER PO SCH ×2 (15:05→20:49)
[2017-07-23] MEDS: Heparin Sodium 5,000 Units/ML Vial SUBCUT SCH (20:49)
[2017-07-24 09:26] VITALS: BP 116/63
[2017-07-24] MEDS: Phenytoin 100 MG Cap.ER PO SCH ×2 (09:26→13:32)
[2017-07-24] MEDS: Heparin Sodium 5,000 Units/ML Vial SUBCUT SCH (09:35)
--- NOTE | 2017-07-24 10:18 | PCM.DCSUM1 ---
Discharge Summary - Hospital Course Free Text/Narrative:: Patient admitted for recurrent seizure due to medication non-compliant. She has had no more seizure since admission. She was started on her Dilantin 100 mg tid. Patient feeling better today and has no symptoms. She is stable for discharge. She is advised to follow up with her PCP and her neurologist. - Discharge Data Discharge Date: 07/24/17 Discharge Disposition: Home, Self-Care 01 Condition: Good - Discharge Diagnosis/Problem(s) (1) Recurrent seizures SNOMED Code(s): 97924905 ICD Code: G40.909 - EPILEPSY, UNSP, NOT INTRACTABLE, WITHOUT STATUS EPILEPTICUS Status: Acute Current Visit: Yes - Patient Instructions Diet: Heart Healthy Diet Fluid Restriction: 2000 mL Activity: As Tolerated Driving: Do Not Drive Showering/Bathing: May Shower Notify Provider of: Fever, Increased Pain, Swelling and Redness, Drainage, Nausea and/or Vomiting - Discharge Plan Prescriptions/Med Rec: Phenytoin 100 mg PO TID #90 cap.er Home Medications: Home Meds Acetaminophen [Tylenol] 650 mg PO Q6H PRN #3 tablet 09/06/15 [Rx] Phenytoin 100 mg PO TID #90 cap.er 07/24/17 [Rx] Forms: ED Department Discharge Referrals: PCP,None [Primary Care Provider] - - Discharge Summary/Plan Comment DC Time >30 min.: Yes - Patient Data Vitals - Most Recent: Last Vital Signs Temp 97.7 F 07/24/17 07:00 Pulse 86 07/24/17 07:00 Resp 18 07/24/17 07:00 BP 116/63 07/24/17 07:00 Pulse Ox 99 07/24/17 07:00 Weight - Most Recent: 197 lb 1.6 oz I&O - Last 24 hours: Intake & Output 07/23/17 07/24/17 07/24/17 22:59 06:59 14:59 Intake Total 350 Balance 350 Lab Results - Last 24 hrs: Laboratory Results - last 24 hr 07/23/17 07/23/17 Range/Units 13:10 13:10 PT 8.8 L (9.0-12.0) SEC INR 0.9 (0.9-1.2) APTT 22.4 (22.0-34.0) SEC Phosphorus 2.3 L (2.5-4.6) mg/dL Magnesium 2.0 (1.8-2.5) mg/dL Med Orders - Current: Current Medications Heparin Sodium (Porcine) (Heparin Sodium) 5,000 units SUBCUT Q12HR [facility] Last Admin: 07/24/17 09:35 Dose: Not Given Phenytoin Sodium (Phenytoin) 100 mg PO TID [facility] Last Admin: 07/24/17 09:26 Dose: 100 mg Discontinued Medications Diazepam (Valium) 10 mg IM ONETIME ONE Stop: 07/23/17 09:08 Last Admin: 07/23/17 09:09 Dose: 10 mg Levetiracetam 3,000 mg/ Sodium (Chloride) 130 mls @ 400 mls/hr IV ONETIME ONE Stop: 07/23/17 09:21 Last Admin: 07/23/17 09:22 Dose: 400 mls/hr Sodium Chloride (Normal Saline) 1,000 mls @ 999 mls/hr IV .BOLUS ONE Stop: 07/23/17 10:45 Last Admin: 07/23/17 09:22 Dose: 999 mls/hr Ondansetron HCl (Zofran) 4 mg IV ONETIME ONE Stop: 07/23/17 09:46 Last Admin: 07/23/17 09:56 Dose: 4 mg Ondansetron HCl (Zofran) 4 mg IV ONETIME ONE Stop: 07/23/17 10:01 Last Admin: 07/23/17 10:05 Dose: 4 mg Promethazine HCl (Phenergan) 50 mg IM ONETIME ONE Stop: 07/23/17 10:08 Last Admin: 07/23/17 10:16 Dose: 50 mg
== END 2017-07-24 15:05 | disposition home or self-care (01) ==
LOC: DL.ED 09:05 → UNDOADMOB 11:42 → DL.MS 11:42
PROVIDERS: ADMIT Student in an Organized Health Care Education/Training Program; ATTEND Student in an Organized Health Care Education/Training Program
DX: G40.909 Epilepsy, unspecified, not intractable, without status epilepticus (principal); Z91.14 Patient's other noncompliance with medication regimen; Z90.49 Acquired absence of other specified parts of digestive tract
CPT/HCPCS: 36415; 80305; 81001; 81025; 83735; 84100; 85610; 85730; 96361; 96365; 96372; 96375; 99284; 99285; A9270-GY; J1953; J2405; J2550; J3360; J7030; J7050

== ENCOUNTER 2017-10-08 21:07 | Emergency (ER) | payer MEDICAID ==
[2017-10-08 21:18] VITALS: BP 125/78
[2017-10-08] MEDS ORDERED: Lidocaine 1% 30 ML SDV INJECT ONE (21:27)
[2017-10-08] MEDS ORDERED: Lidocaine 1% 30 ML SDV ONE (21:32)
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
== END 2017-10-08 22:18 | disposition left against medical advice (07) ==
LOC: DL.ED 21:07
DX: S51.812A Laceration without foreign body of left forearm, initial encounter (principal); F17.210 Nicotine dependence, cigarettes, uncomplicated; W26.0XXA Contact with knife, initial encounter
CPT/HCPCS: 12002; 36415; 80305; 81025; 99283; G0480

== ENCOUNTER 2018-07-11 00:37 | Emergency (ER) | payer SELFPAY ==
[2018-07-11] MEDS ORDERED: Phenytoin 100 MG Cap.ER PO ONE ×2 (00:38→03:42)
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
[2018-07-11 01:10] LABS: ANION GAP 13.2; CHLORIDE,CL 104 mmol/L (101-111); SODIUM,NA 135 mmol/L (135-145)
[2018-07-11] MEDS ORDERED: Fosphenytoin 1,000 MG.PE in Sodium Chloride 0.9% 50 ML IV ONE (01:12)
[2018-07-11] MEDS ORDERED: Phenytoin 250 MG/5 ML SDV IVPUSH ONE (01:30)
[2018-07-11] MEDS ORDERED: Acetaminophen 325 MG Tab PO ONE (01:33)
[2018-07-11] MEDS ORDERED: Potassium Chloride 10 MEQ Tab.ER PO ONE (02:25)
[2018-07-11] MEDS ORDERED: Phenytoin 100 MG Cap.ER ONE (03:46)
[2018-07-11 03:52] VITALS: BP 105/61
== END 2018-07-11 03:56 | disposition home or self-care (01) ==
LOC: DL.ED 00:37
DX: R56.9 Unspecified convulsions (principal); Z79.899 Other long term (current) drug therapy
CPT/HCPCS: 36415; 73562; 80053; 80185; 84703; 85025; 96374; 99285; A9270; J1165

== ENCOUNTER 2018-07-13 01:46 | Emergency (ER) | payer SELFPAY ==
[2018-07-13] MEDS ORDERED: Acetaminophen 325 MG Tab PO ONE (02:02)
[2018-07-13 02:35] VITALS: BP 129/84
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
== END 2018-07-13 02:49 ==
LOC: DL.ED 01:46
DX: S90.31XA Contusion of right foot, initial encounter (principal); F10.129 Alcohol abuse with intoxication, unspecified; Y90.6 Blood alcohol level of 120-199 mg/100 ml; F41.9 Anxiety disorder, unspecified; Z79.899 Other long term (current) drug therapy; X58.XXXA Exposure to other specified factors, initial encounter
CPT/HCPCS: 36415; 73630; 80305; 99284; A9270; G0480

== ENCOUNTER 2019-05-22 02:23 | Inpatient (IN) | payer MEDICAID ==
[2019-05-22] MEDS ORDERED: Oxytocin/Normal Saline 30 UNIT/500 ML BAG ONE (03:19)
[2019-05-22] MEDS ORDERED: Diphtheria,Pertussis(Acell),Tetanus Vaccine 0.5 ML SDV IM ONE (04:03)
[2019-05-22] MEDS ORDERED: Lactated Ringers 1,000 ML IV SCH (04:15)
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
[2019-05-22 09:54] VITALS: BP 102/61; PULSE 56
--- NOTE | 2019-05-22 14:10 | PCM.SN ---
- Free Text/Narrative Note: DOS: 05-22-2019 Phenytoin came back subtheraputic @ 3 wet prep with BV. Will send Rx for Flagyl to her pharmacy if able to contact her. Left message at her listed phone numbers--her phone, and her aunt Charmaine.
[2019-05-24 12:47] LABS: C.TRACHOMATIS BY TMA Negative (Negative); N.GONORRHOEAE BY TMA Negative (Negative)
== END 2019-05-22 10:55 | disposition home or self-care (01) | DRG 833 ==
LOC: DL.OBCHECK 02:23 → DL.OB 02:30 → OBSVTOIN 02:30 → UNDOADMOB 03:13 → DL.OB 03:13 → UNDODISOB 10:55
PROVIDERS: ADMIT Family Medicine; ATTEND Family Medicine
DX: O32.1XX0 Maternal care for breech presentation, not applicable or unspecified (principal); O99.333 Smoking (tobacco) complicating pregnancy, third trimester; F17.210 Nicotine dependence, cigarettes, uncomplicated; O99.013 Anemia complicating pregnancy, third trimester; D64.9 Anemia, unspecified; Z86.69 Personal history of other diseases of the nervous system and sense organs; Z86.19 Personal history of other infectious and parasitic diseases; Z87.898 Personal history of other specified conditions; Z87.51 Personal history of pre-term labor; Z87.59 Personal history of other complications of pregnancy, childbirth and the puerperium; Z23 Encounter for immunization; Z3A.33 33 weeks gestation of pregnancy
CPT/HCPCS: 36415; 51701; 76815; 80185; 80305-QW; 80307; 81001; 82565; 82570; 83615; 84156; 84450; 84460; 84520; 84550; 85027; 86592; 86593; 86762; 86803; 87081; 87210; 87340; 87389; 87491; 87591; 90471; 90686; 90715; G0008; J7120

== ENCOUNTER 2019-06-07 01:55 | Inpatient (IN) | payer MEDICAID ==
[~2019-06-07 01:55] MED LIST: Oxytocin/Normal Saline 30 UNIT/500 ML BAG IV SCH
[2019-06-07] MEDS ORDERED: Ketorolac 30 MG/ML SDV IVPUSH ONE (02:07)
[2019-06-07] MEDS ORDERED: Carboprost Tromethamine 250 MCG/1 ML Amp IM PRN (02:17)
[2019-06-07] MEDS ORDERED: Sodium Chloride 0.9% 10 ML Syringe FLUSH PRN (02:17)
[2019-06-07] MEDS ORDERED: Tranexamic Acid 1,000 MG in Sodium Chloride 0.9% 100 ML IV PRN (02:17)
[2019-06-07] MEDS ORDERED: Methylergonovine 0.2 MG Tab PO PRN (02:17)
[2019-06-07] MEDS ORDERED: Misoprostol 400 MCG (4 X 100 MCG TAB) RECTAL PRN (02:17)
[2019-06-07] MEDS ORDERED: Simethicone 80 MG Tab.Chew PO PRN (02:17)
[2019-06-07] MEDS ORDERED: Oxytocin 10 Units/1 ML SDV IM PRN (02:17)
[2019-06-07] MEDS ORDERED: Benzocaine/Menthol 20%-0.5% Spray 56 GM Canister TOP PRN (02:17)
[2019-06-07] MEDS ORDERED: Acetaminophen 325 MG Tab PO PRN (02:17)
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
[2019-06-07] MEDS: Lactated Ringers 1,000 ML IV SCH ×2 (02:20→06:10)
[2019-06-07] MEDS ORDERED: hydrOXYzine HCl 25 MG Tab PO ONE (02:41)
[2019-06-07] MEDS: Methylergonovine 0.2 MG Tab PO SCH ×3 (06:34→21:43)
[2019-06-07] MEDS: Docusate Sodium 100 MG Cap PO PRN ×2 (12:23→21:06)
[2019-06-07] MEDS: Ibuprofen 800 MG Tab PO PRN ×2 (12:23→21:05)
[2019-06-07] MEDS: Prenatal Multivitamin with Calcium/Folic Acid/Iron Tab PO SCH (12:23)
[2019-06-07] MEDS: Ferrous Sulfate 325 MG Tab PO SCH (12:23)
[2019-06-07] MEDS: hydrOXYzine HCl 25 MG Tab PO SCH (21:07)
[2019-06-07] MEDS ORDERED: hydrOXYzine HCl 25 MG Tab PO PRN (21:26)
[2019-06-08] MEDS: Ibuprofen 800 MG Tab PO PRN (08:00)
[2019-06-08] MEDS: Ferrous Sulfate 325 MG Tab PO SCH (08:01)
[2019-06-08] MEDS: Methylergonovine 0.2 MG Tab PO SCH ×2 (08:01→15:32)
[2019-06-08] MEDS: Prenatal Multivitamin with Calcium/Folic Acid/Iron Tab PO SCH (08:01)
[2019-06-08] MEDS: hydrOXYzine HCl 25 MG Tab PO SCH (20:43)
--- NOTE | 2019-06-08 23:06 | PCM.PNPP ---
- General Info Date of Service: 06/08/19 Subjective Update: PPD#1 after home . Patient reports pain is improved today. Vaginal bleeding has slowed down. No fever, chills, dizziness or lightheadedness. Tolerating a general diet. Urinating without difficulty. Nursing staff reports she has been sleeping most of the day. She has breastfed once, and it went fairly well. No other concerns per nursing staff. Patient reported no concerns today. - Review of Systems General: Reports: Fatigue HEENT: Reports: No Symptoms Pulmonary: Reports: No Symptoms Cardiovascular: Reports: No Symptoms Gastrointestinal: Reports: Abdominal Pain Genitourinary: Reports: No Symptoms Musculoskeletal: Reports: Back Pain Skin: Reports: No Symptoms Neurological: Reports: No Symptoms - General Info Date of Service: 06/08/19 - Patient Data Vital Signs - Most Recent: Last Vital Signs Temp 36.8 C 06/08/19 19:49 Pulse 89 06/08/19 19:49 Resp 18 06/08/19 19:49 BP 117/60 06/08/19 19:49 Pulse Ox 98 06/08/19 19:49 Weight - Most Recent: 74.843 kg Med Orders - Current: Current Medications Acetaminophen (Tylenol) 650 mg PO Q6H PRN PRN Reason: mild pain or fever Benzocaine/Menthol (Dermoplast Pain Relief [place]) 0 gm TOP Q4H PRN PRN Reason: Perineal comfort measures Carboprost Tromethamine (Hemabate Ds) 250 mcg IM ASDIRECTED PRN PRN Reason: Excessive vaginal bleeding Docusate Sodium (Colace) 100 mg PO BID PRN PRN Reason: Constipation Last Admin: 06/07/19 21:06 Dose: 100 mg Ferrous Sulfate (Ferrous Sulfate) 325 mg PO WITHBREAKFAST [facility] Last Admin: 06/08/19 08:01 Dose: 325 mg Hydroxyzine HCl (Atarax) 100 mg PO BEDTIME ROHIT Last Admin: 06/08/19 20:43 Dose: Not Given Hydroxyzine HCl (Atarax) 50 mg PO ONETIME PRN PRN Reason: Anxiety Last Admin: 06/07/19 21:42 Dose: 50 mg Tranexamic Acid 1,000 mg/ (Sodium Chloride) 110 mls @ 660 mls/hr IV ONETIME PRN PRN Reason: Bleeding Oxytocin/Sodium Chloride (Pitocin In Ns 30 Unit/500 Ml) 30 unit in 500 mls @ 500 mls/hr IV TITRATE ROHIT; Protocol Last Titration: 06/07/19 04:55 Dose: 0 mls/hr Lactated Ringer's (Ringers, Lactated) 1,000 mls @ 125 mls/hr IV ASDIRECTED ROHIT Last Admin: 06/07/19 06:10 Dose: 125 mls/hr Ibuprofen (Motrin) 800 mg PO Q8H PRN PRN Reason: Mild Pain or Fever Last Admin: 06/08/19 08:00 Dose: 800 mg Methylergonovine Maleate (Methergine) 0.2 mg PO ONETIME PRN PRN Reason: excessive vaginal bleeding Misoprostol (Cytotec) 800 mcg RECTAL ONETIME PRN PRN Reason: Hemorrhage Oxytocin (Pitocin) 10 unit IM ONETIME PRN PRN Reason: Bleeding Prenat Multivit/[place]/Iron/Folic Ac ( Plus Iron) 1 each PO DAILY [facility] Last Admin: 06/08/19 08:01 Dose: 1 each Simethicone (Simethicone) 80 mg PO Q4H PRN PRN Reason: Gas Sodium Chloride (Saline Flush) 10 ml FLUSH ASDIRECTED PRN PRN Reason: Keep Vein Open Witch Lyric (Medi-Pads) 1 each TOP Q4HR PRN PRN Reason: Perineal Comfort Measure Discontinued Medications Hydroxyzine HCl (Atarax) 100 mg PO ONETIME ONE Stop: 06/07/19 02:42 Last Admin: 06/07/19 02:51 Dose: 100 mg Ketorolac Tromethamine (Toradol) 30 mg IVPUSH ONETIME ONE Stop: 06/07/19 02:08 Last Admin: 06/07/19 02:40 Dose: 30 mg Methylergonovine Maleate (Methergine) 0.2 mg PO Q8H [facility] Last Admin: 06/08/19 15:32 Dose: Not Given - Interaction Infant Disposition, : [place] to Nursery Infant Feeding: Attempted ; Nursed Fair/Poor Support Person: Friend - Recovery Exam Fundal Tone: Firm Fundal Level: 2 Fingerbreadths Below Umbilicus Fundal Placement: Midline Lochia Amount: Small Lochia Color: Rubra/Red Perineum Description: Intact, Minimal Bruising/Swelling Episiotomy/Laceration: None Bladder Status: Voiding Urinary Elimination: Voided - Exam General: Alert Lungs: Clear to Auscultation, Normal Respiratory Effort Cardiovascular: Regular Rate, Regular Rhythm. No: No Murmurs GI/Abdominal Exam: Soft, Non-Tender Extremities: No Pedal Edema Skin: Warm, Dry, Intact - Problem List & Annotations (1) High risk social situations SNOMED Code(s): 381552515, 563726247 Code(s): Z60.9 - PROBLEM RELATED TO SOCIAL ENVIRONMENT, UNSPECIFIED Status : Acute (2) (normal spontaneous vaginal delivery) SNOMED Code(s): 82533285, 858719198 Code(s): O80 - ENCOUNTER FOR FULL-TERM UNCOMPLICATED DELIVERY Status: Acute (3) Drug use affecting in third trimester SNOMED Code(s): 02942991, 68908176, 673157707 Code(s): O99.323 - DRUG USE COMPLICATING , THIRD TRIMESTER Status : Acute (4) delivery, delivered SNOMED Code(s): 764379863, 496839884 Code(s): O60.10X0 - LABOR W DELIVERY, UNSP TRIMESTER, UNSP Status: Acute - Problem List Review Problem List Initiated/Reviewed/Updated: Yes - Assessment Assessment:: 33-year-old PPD#1 after at home at 35w4d - Plan Plan:: 1. Continue routine cares 2. Breast and bottle feeding 3. Anticipate discharge 06/09/2019 Sara Jenkins MD
[2019-06-09 08:12] VITALS: BP 125/68; PULSE 98
[2019-06-09] MEDS: Prenatal Multivitamin with Calcium/Folic Acid/Iron Tab PO SCH (09:10)
[2019-06-09] MEDS: Docusate Sodium 100 MG Cap PO PRN (09:10)
[2019-06-09] MEDS: Ferrous Sulfate 325 MG Tab PO SCH (09:11)
--- NOTE | 2019-06-09 16:21 | PCM.DCSUM1 ---
Discharge Summary - Hospital Course Free Text/Narrative:: 33-year-old PPD#2 s/p precipitous at home at 35w4d gestation Diagnosis: Stroke: No - Discharge Data Discharge Date: 06/09/19 Discharge Disposition: Home, Self-Care 01 Condition: Good - Referral to Home Health Primary Care Physician: PCP Unobtainable - Patient Summary/Data Operative Procedure(s) Performed: None Complications: None Consults: None Labs Pending at D/C: None Recommended Follow-up Testing/Procedures: None Planned Operative Procedure(s) after DC: None Hospital Course: Please see subjective section - Patient Instructions Diet: Usual Diet as Tolerated Activity: Apply Ice, As Tolerated, No Lifting Over 20 Pounds Driving: May Drive Today Showering/Bathing: June Shower Notify Provider of: Fever, Increased Pain - Discharge Plan *PRESCRIPTION DRUG MONITORING PROGRAM REVIEWED*: Not Applicable *COPY OF PRESCRIPTION DRUG MONITORING REPORT IN PATIENT BUDDY: Not Applicable Home Medications: Home Meds Phenytoin 100 mg PO TID #90 cap.er 07/24/17 [Rx] Acetaminophen [Tylenol] 650 mg PO Q6H PRN tablet 06/09/19 [Rx] Docusate Sodium [Colace] 100 mg PO BID PRN cap 06/09/19 [Rx] Ferrous Sulfate 325 mg PO WITHBREAKFAST tablet 06/09/19 [Rx] Ibuprofen [Motrin] 800 mg PO Q8H PRN tablet 06/09/19 [Rx] Vit with Ca/FA/Iron [ Plus Iron] 1 each PO DAILY tablet [Rx] Patient Handouts: Anemia, Care After Vaginal Delivery Referrals: Sara Jenkins MD [Physician] - - Discharge Summary/Plan Comment DC Time >30 min.: No Discharge Summary/Plan Comment: Discharge home today. Follow-up in 6-8 weeks for routine care. Recommended use of Tylenol and ibuprofen for pain. Discussed use of ferrous sulfate for anemia. Reasons to return to the clinic or present to the ED were reviewed with the patient , and all questions were answered. - General Info Date of Service: 06/09/19 Subjective Update: Patient is doing well. Pain has improved. No fever, chills, dizziness or lightheadedness. Tolerating a general diet. Urinating and ambulating without complication. Has stopped and is bottle feeding. Nursing notes that patient continues to sleep most of the time. They have no other concerns. Patient denies any concerns today. director of professional services will be taking custody of her child. - Review of Systems General: Reports: Fatigue HEENT: Reports: No Symptoms Pulmonary: Reports: No Symptoms Cardiovascular: Reports: No Symptoms Gastrointestinal: Reports: No Symptoms Genitourinary: Reports: No Symptoms Musculoskeletal: Reports: Back Pain Skin: Reports: No Symptoms Neurological: Reports: No Symptoms - Patient Data Vitals - Most Recent: Last Vital Signs Temp 37.2 C 06/09/19 08:00 Pulse 98 06/09/19 08:00 Resp 16 06/09/19 08:00 BP 125/68 06/09/19 08:00 Pulse Ox 91 L 06/09/19 08:00 Weight - Most Recent: 74.843 kg I&O - Last 24 hours: Intake & Output 06/09/19 06/09/19 06/09/19 06:59 14:59 22:59 Intake Total 100 Balance 100 Med Orders - Current: Current Medications Acetaminophen (Tylenol) 650 mg PO Q6H PRN PRN Reason: mild pain or fever Benzocaine/Menthol ([facility]) 0 gm TOP Q4H PRN PRN Reason: Perineal comfort measures Carboprost Tromethamine (Hemabate Ds) 250 mcg IM ASDIRECTED PRN PRN Reason: Excessive vaginal bleeding Docusate Sodium (Colace) 100 mg PO BID PRN PRN Reason: Constipation Last Admin: 06/09/19 09:10 Dose: 100 mg Ferrous Sulfate (Ferrous Sulfate) 325 mg PO WITHBREAKFAST ROHIT Last Admin: 06/09/19 09:11 Dose: 325 mg Hydroxyzine HCl (Atarax) 100 mg PO BEDTIME ROHIT Last Admin: 06/08/19 20:43 Dose: Not Given Hydroxyzine HCl (Atarax) 50 mg PO ONETIME PRN PRN Reason: Anxiety Last Admin: 06/07/19 21:42 Dose: 50 mg Tranexamic Acid 1,000 mg/ (Sodium Chloride) 110 mls @ 660 mls/hr IV ONETIME PRN PRN Reason: Bleeding Oxytocin/Sodium Chloride (Pitocin In Ns 30 Unit/500 Ml) 30 unit in 500 mls @ 500 mls/hr IV TITRATE ROHIT; Protocol Last Titration: 06/07/19 04:55 Dose: 0 mls/hr Lactated Ringer's (Ringers, Lactated) 1,000 mls @ 125 mls/hr IV ASDIRECTED [facility] Last Admin: 06/07/19 06:10 Dose: 125 mls/hr Ibuprofen (Motrin) 800 mg PO Q8H PRN PRN Reason: Mild Pain or Fever Last Admin: 06/08/19 08:00 Dose: 800 mg Methylergonovine Maleate (Methergine) 0.2 mg PO ONETIME PRN PRN Reason: excessive vaginal bleeding Misoprostol (Cytotec) 800 mcg RECTAL ONETIME PRN PRN Reason: Hemorrhage Oxytocin (Pitocin) 10 unit IM ONETIME PRN PRN Reason: Bleeding Prenat Multivit/[place]/Iron/Folic Ac ( Plus Iron) 1 each PO DAILY [facility] Last Admin: 06/09/19 09:10 Dose: 1 each Simethicone (Simethicone) 80 mg PO Q4H PRN PRN Reason: Gas Sodium Chloride (Saline Flush) 10 ml FLUSH ASDIRECTED PRN PRN Reason: Keep Vein Open Witch Lyric (Medi-Pads) 1 each TOP Q4HR PRN PRN Reason: Perineal Comfort Measure Discontinued Medications Hydroxyzine HCl (Atarax) 100 mg PO ONETIME ONE Stop: 06/07/19 02:42 Last Admin: 06/07/19 02:51 Dose: 100 mg Ketorolac Tromethamine (Toradol) 30 mg IVPUSH ONETIME ONE Stop: 06/07/19 02:08 Last Admin: 06/07/19 02:40 Dose: 30 mg Methylergonovine Maleate (Methergine) 0.2 mg PO Q8H [facility] Last Admin: 06/08/19 15:32 Dose: Not Given - Exam General: Reports: Alert, Oriented Lungs: Reports: Clear to Auscultation, Normal Respiratory Effort Cardiovascular: Reports: Regular Rate, Regular Rhythm, No Murmurs GI/Abdominal Exam: Soft Extremities: Normal Inspection, Normal Range of Motion, No Pedal Edema Skin: Reports: Warm, Dry, Intact
== END 2019-06-09 16:45 | disposition home or self-care (01) | DRG 805 ==
LOC: DL.OBCHECK 01:55 → DL.MS 02:06
PROVIDERS: ADMIT Family Medicine; ATTEND Family Medicine
PROC: 10E0XZZ Delivery of Products of Conception, External Approach (ICD-10-PCS; principal; 2019-06-07)
DX: O62.3 Precipitate labor (principal); O60.14X0 Preterm labor third trimester with preterm delivery third trimester, not applicable or unspecified; Z37.0 Single live birth; O99.324 Drug use complicating childbirth; Z3A.35 35 weeks gestation of pregnancy; F12.90 Cannabis use, unspecified, uncomplicated; F15.90 Other stimulant use, unspecified, uncomplicated
CPT/HCPCS: 36415; 59409; 59414; 80305-QW; 85027; A9270-GY; J1885; J2590; J7120

== ENCOUNTER 2020-02-09 09:15 | Emergency (ER) | payer MEDICAID ==
[2020-02-09 09:26] VITALS: BP 123/90; PULSE 99
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
[2020-02-09] MEDS ORDERED: Lidocaine 1% 30 ML SDV ONE (10:14)
[2020-02-09 10:26] LABS: ANION GAP 12.5 mEq/L (7-13); CHLORIDE,CL 101 mmol/L (98-107); SODIUM,NA 134 mmol/L (136-145)
[2020-02-09] MEDS: Lidocaine 1% 30 ML SDV INJECT ONE (10:40)
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
== END 2020-02-09 11:53 | disposition home or self-care (01) ==
LOC: DL.ED 09:15
DX: O9A.211 Injury, poisoning and certain other consequences of external causes complicating pregnancy, first trimester (principal); S62.336A Displaced fracture of neck of fifth metacarpal bone, right hand, initial encounter for closed fracture; Z3A.12 12 weeks gestation of pregnancy; Y04.0XXA Assault by unarmed brawl or fight, initial encounter
CPT/HCPCS: 26605; 36415; 73130; 80053; 80305; 80307; 81003; 84702; 85025; 99284; J2001

== ENCOUNTER 2020-07-28 02:00 | Inpatient (IN) | payer MEDICAID ==
[2020-07-28] MEDS ORDERED: Lactated Ringers 1,000 ML IV SCH ×2 (02:30→03:45)
[2020-07-28] MEDS ORDERED: Ampicillin 2 GM in Sodium Chloride 0.9% 100 ML IV STA (02:52)
[2020-07-28] MEDS ORDERED: Ampicillin 500 MG Vial ONE (02:57)
[2020-07-28] MEDS ORDERED: Sodium Chloride 0.9% 10 ML Syringe FLUSH PRN (03:33)
[2020-07-28] MEDS ORDERED: Benzocaine/Menthol 20%-0.5% Spray 78 GM Cannister TOP PRN (03:33)
[2020-07-28] MEDS ORDERED: Diphtheria,Pertussis(Acell),Tetanus Vaccine 0.5 ML Syringe IM ONE ×2 (03:33→09:15)
[2020-07-28] MEDS ORDERED: Lidocaine 1% 30 ML SDV INJECT PRN (03:33)
[2020-07-28] MEDS ORDERED: fentaNYL 100 MCG/2 ML SDV IVPUSH PRN (03:33)
[2020-07-28] MEDS ORDERED: Oxytocin 10 Units/1 ML SDV IM PRN (03:33)
[2020-07-28] MEDS ORDERED: Carboprost Tromethamine 250 MCG/1 ML Amp IM PRN ×2 (03:33)
[2020-07-28] MEDS ORDERED: Lactated Ringers 1,000 ML IV ONE (03:33)
[2020-07-28] MEDS ORDERED: Tranexamic Acid 1,000 MG in Sodium Chloride 0.9% 100 ML IV PRN ×4 (03:33)
[2020-07-28] MEDS ORDERED: Ondansetron 4 MG/2 ML SDV IVPUSH PRN (03:33)
[2020-07-28] MEDS ORDERED: Zolpidem 5 MG Tab PO PRN (03:33)
[2020-07-28] MEDS ORDERED: Methylergonovine 0.2 MG/1 ML Amp IM PRN (03:33)
[2020-07-28] MEDS ORDERED: Misoprostol 400 MCG (4 X 100 MCG TAB) RECTAL PRN ×2 (03:33)
[2020-07-28] MEDS ORDERED: Simethicone 80 MG Tab.Chew PO PRN (03:33)
[2020-07-28] MEDS ORDERED: Acetaminophen 325 MG Tab PO PRN ×2 (03:33)
[2020-07-28] MEDS ORDERED: Oxytocin/Normal Saline 30 UNIT/500 ML BAG IV SCH (03:45)
--- NOTE | 2020-07-28 03:59 | US ---
PROCEDURE INFORMATION: Exam: US , Limited Exam date and time: 07/28/2020 2:43 AM Age: 35 years old Clinical indication: Other: Labor pain; Gestational age or lmp: 39 w 5 d; ; Additional info: No pnc TECHNIQUE: Imaging protocol: Real-time ultrasound of the maternal uterus with image documentation. Exam focused on the clinical indication. COMPARISON: No relevant prior studies available. FINDINGS: Gestation: Intrauterine gestation. position: The fetus is in cephalic position. heart rate: 126 BPM Placenta: Placenta is fundal and anterior. It is heterogeneous in appearance, nonspecific. Amniotic fluid index: 9.47 cm, normal. BIOMETRY: Estimated weight: 3896 g Biparietal diameter: 9.55 cm, 39 weeks and 0 days Head circumference: 34.54 cm, 40 weeks and 0 days Abdominal circumference: 36.16 cm, 40 weeks and 1 day Femur length: 7.73 cm, 39 weeks and 4 days MATERNAL: Cervix: Obscured and not well evaluated. IMPRESSION: 1. Intrauterine gestation, cephalic in position, with heart rate of 126 BPM. 2. Ultrasound dating of 39 weeks and 5 days and estimated weight of 3896 g. 3. Heterogeneous appearance of the placenta is nonspecific and may be related to 3rd trimester age. Placental hemorrhage is difficult to exclude. 4. Obscured cervix, not well evaluated.
[2020-07-28] MEDS: Ibuprofen 800 MG Tab PO PRN ×3 (05:08→20:58)
--- NOTE | 2020-07-28 05:55 | HP ---
CHIEF COMPLAINT: Loss of mucous plug with contractions. HISTORY OF PRESENT ILLNESS: Ms. Nunez is a 35-year-old 10, para 6- 2-1-8 female, LMP 10/25/2019, EDC 07/31/2020, EGA 39-4/7 weeks' gestation, which is consistent with an ultrasound done today, giving an ultrasound age of 39-5/7 weeks' gestation, estimated weight 8 pounds 9 ounces. She states that she started having contractions earlier yesterday afternoon, approximately 4 o'clock in the afternoon, that progressively increased and got stronger throughout the day and evening. She states that she lost her mucous plug, and with her history of delivering her last baby at home, she wanted to come in to have the baby in the hospital. She has not had any care. She denies any leakage of fluid. She had no nausea, vomiting, or diarrhea. No fever or chills. No headaches, blurred vision, chest pain, shortness of breath, epigastric pain, or scotomata. She denied any leg edema, dysuria, frequency, or urgency with urination. No hematochezia, hematemesis, or hematuria. No complications throughout her that she knows of. PAST MEDICAL HISTORY: Positive for seizure disorder, stroke that had something to do with her seizures, and abnormal Pap smear. She denies any diabetes, hypertension, heart disease, thyroid disease, thromboembolic disease, lung problems, thromboembolic disease, or breast lesions. FAMILY HISTORY: Positive for hypertension, diabetes, twins, leukemia, Down syndrome in a cousin, cleft lip, and Mitch Ryan syndrome. SOCIAL HISTORY: The patient smokes a half pack of cigarettes a day. She has used marijuana, denies any alcohol use or any other illicit drug use other than marijuana. She lives in [place] with her brother and girlfriend and states that during her , she had lived in [place] just before coming back to [place], and before that, she went to [place]. ALLERGIES: No known drug allergies. MEDICATIONS: She is on levetiracetam 1000 mg twice a day for her seizures. She denies using any vitamins now. She stopped them about a month ago because they were making her sick. OBSTETRICAL HISTORY: 06/07/2019, delivery of a viable male infant at 35-4/7 weeks' gestation via a spontaneous vaginal delivery at home. 09/04/2015, delivery of a viable female infant via a normal spontaneous vaginal delivery at 39-3/7 weeks' gestation. She also had hemorrhage. 12/17/2014, delivery of a viable male infant weighing 3969 g via a normal spontaneous vaginal delivery at 39 weeks' gestation. 02/23/2011, delivery of a viable female infant, 36 weeks' gestation, via a normal spontaneous vaginal delivery, weighing 2920 g. January 2011, spontaneous AB at 7 weeks' gestation, no sequelae. 11/26/2009, delivery of a viable male at 38-4/7 weeks' gestation via a normal spontaneous vaginal delivery, weighing 3600 g. 08/14/2008, delivery of a viable male weighing 3912 g via a normal spontaneous vaginal delivery, there was a mild shoulder dystocia. 05/13/2007, delivery of a viable male infant weighing 3600 g via a normal spontaneous vaginal delivery. 03/02/2006, delivery of a viable male at 39 weeks' gestation via a normal spontaneous vaginal delivery, weighing 4167 g. PAST SURGICAL HISTORY: 1. Left arm surgery with ORIF. 2. Laparoscopic cholecystectomy. 3. Lower left leg debridement. REVIEW OF SYSTEMS: All pertinent positive and negative review of systems are per HPI. All other systems are reviewed and negative. A 10-point review of systems is discussed with the patient. She has no other issues. OBJECTIVE: General: A well-developed, well-nourished female in acute distress secondary to contractions. HEENT: Unremarkable. Neck: Supple without adenopathy. No thyromegaly. Lungs: Clear to auscultation. No wheezing, rhonchi, or rales are noted. Cardiovascular: Regular rate and rhythm without murmurs. Abdomen: Gravid. Nontender. Fundal height was 39 cm. heart tones were in the 140s to 150s. The patient was aury every 2 to 3 minutes apart on admission. Genitourinary: Cervix on admission was 7 cm dilated. She dilated to 8 cm with a bulging bag of meade. After determining via ultrasound that she is within 1 day of her dates, vertex with no previa, artificial rupture of membranes occurred with clear fluid after her Ampicillin IV was infused.. Extremities: No edema, erythema, or tenderness is noted. Neurological: Sensory and motor are intact. LABS: A POSITIVE Ab screen- Neg, Hgb- 9.2, HIV- Neg, Covid- 19 Neg, ASSESSMENT: 1. A 39-4/7-week intrauterine . 2. 10, para 6-2-1-8. 3. Grand multiparity. 4. History of seizure disorder. 5. Blood type A positive, antibody screen negative. 6. No care. 7. Nicotine abuse 8. Marijuana in drug screen. 9. Chronic anemia of . PLAN: 1. Admit for delivery. 2. All questions were answered. 3. Expect vaginal delivery MOD[facility] /[id number] CECELIA
--- NOTE | 2020-07-28 06:13 | DEL ---
DATE: 07/28/2020 PRE-DELIVERY DIAGNOSES: 1. 35-year-old 10, para 6-2-1-8 female. 2. 39 and 4/7 weeks gestation. 3. No care. 4. History of seizure disorder. 5. Grand multiparity. 6. Positive marijuana in urine drug screen. 7. Tobacco abuse. 8. Active labor. POST-DELIVERY DIAGNOSES: 1. 35-year-old 10, para 6-2-1-8 female. 2. 39 and 4/7 weeks gestation. 3. No care. 4. History of seizure disorder. 5. Grand multiparity. 6. Positive marijuana in urine drug screen. 7. Tobacco abuse 8. Active labor. 9. Delivery of a viable male weighing 8 pounds Length- 19 1/2 inches with score of 6 at one minute, 8 at five minutes. PROCEDURE: Normal spontaneous vaginal delivery. COMPLICATIONS: None. FLUIDS: Crystalloids/LR. DRAINS: None. PATHOLOGY: None. ANESTHESIA: None. EBL: 200 mL. FINDINGS: Viable male weighing 8 pounds, Length- 19 1/2 inches, with score of 6 at oneminute, 8 at five minutes. PROCEDURE: The patient is a 35-year-old 10, para 6-2-1-8 female with no care, came in to Labor and Delivery dilated to 7 cm. Ultrasound showed she was measuring 1 day ahead of date. By her LMP, her EDC is 07/31/2020, EGA 39 and 4/7 weeks gestation. Since she had no care, we did order new OB labs and group B strep, vaginal culture, wet mount. We did give her 2 g of ampicillin IV for group B strep prophylaxis and not knowing exactly how far long she was with no care. Artificial rupture of membranes occurred after the ampicillin had been in. Clear fluid noted. The patient quickly dilated to complete. She started pushing and she had a normal spontaneous vaginal delivery of a viable male infant, OA, over intact perineum. The cord was 3 vessel, not around the neck. The placenta was then delivered by simple expression intact. The labia, vagina and cervix were inspected and intact. Cord blood was obtained. Because of her grand multiparity status, I did give her Pitocin IV 30 units in bag of 500 mL NS and also 1000 mcg of misoprostol rectally to prevent hemorrhage which she has had in the past. She tolerated all this quite well. She recovered well. [facility] /[id number] MTDD
[2020-07-28] MEDS: Ferrous Sulfate 325 MG Tab PO SCH ×3 (09:24→20:58)
[2020-07-28] MEDS: levETIRAcetam 500 MG Tab PO SCH ×2 (09:24→20:58)
[2020-07-28] MEDS: Docusate Sodium 100 MG Cap PO PRN ×2 (09:24→20:58)
[2020-07-28] MEDS: Prenatal Multivitamin with Calcium/Folic Acid/Iron Tab PO SCH (09:24)
[2020-07-29] MEDS: Prenatal Multivitamin with Calcium/Folic Acid/Iron Tab PO SCH (08:34)
[2020-07-29] MEDS: levETIRAcetam 500 MG Tab PO SCH (08:34)
[2020-07-29] MEDS: Ferrous Sulfate 325 MG Tab PO SCH (08:34)
[2020-07-29] MEDS: Ibuprofen 800 MG Tab PO PRN (08:34)
[2020-07-29] MEDS: Docusate Sodium 100 MG Cap PO PRN (08:34)
[2020-07-29 08:43] VITALS: BP 84/66; PULSE 78
--- NOTE | 2020-07-30 07:55 | DISCH ---
INDICATIONS FOR ADMISSION: Ms. Nunez is a 35-year-old 10, para 6- 2-1-8 female who reported to Labor and Delivery at [facility] in [place] with increasing force and frequency of contractions and was noted to be 7 cm dilated on admission. She had not had any care. By her LMP, her EDC was 07/31/2020, EGA 39-4/7 weeks gestation. We did do an ultrasound on admission, and it give her an EDC of 07/30/2020. Since we did not know first how far long she was, she was given 2 g of ampicillin IV for group B Streptococcus prophylaxis, and we also got all her labs. Once the ampicillin was in, she was having pressure, she was noted to be 8 cm dilated. Artificial rupture of membranes occurred. She quickly dilated to complete, and she pushed and had a normal spontaneous vaginal delivery of a viable male infant, OA over an intact perineum. The cord was 3 vessel, not around the neck. The placenta was delivered by simple expression intact. The labia, vagina, and cervix were inspected and intact. Cord blood was obtained. He weighed 8 pounds. He was 19-1/2 inches long with scores of 6 at one minute, 8 at five minutes. She did get Pitocin IV and misoprostol 1000 mcg rectally to prevent hemorrhage because of her grand multiparity status. She recovered quite nicely. She had no nausea, vomiting, or diarrhea. No fever or chills. No hematochezia, hematemesis, or hematuria. No dysuria, frequency, or urgency with urination. She tolerated her diet well and ambulated quite well. No complications occurred throughout her hospital stay. reinforcing metal worker consult had been placed, and they are evaluating the patient and helping with the infant. She was ready for discharge on day #1. LABORATORY AND DIAGNOSTIC STUDIES: On 07/28/2020, WBC 15.0, hemoglobin 9.2, hematocrit 30.3, and platelet count 629,000. Urine drug screen positive for marijuana. HIV nonreactive. COVID-19 negative. Urinalysis negative. On 07/29/2020, WBC 11.6, hemoglobin 8.5, hematocrit 28.5, and platelet count 554,000. Her blood type was A-positive. Antibody screen was negative. DISCHARGE INSTRUCTIONS: 1. Discharge to home. 2. Follow up with Dr. Jenkins next week or sooner if problems develop. 3. No douching, tampons, or intercourse for 6 weeks. 4. Discharge instructions including activity, followup, medications, diet, and wound care were discussed with patient. She understands these and is willing to comply with these. 5. Ibuprofen 800 mg 1 tablet t.i.d. p.r.n. for pain. 6. vitamin 1 tablet daily. 7. Iron 1 tablet t.i.d. 8. Keppra 1000 mg twice a day. DISCHARGE DIAGNOSES: 1. A 35-year-old 10, para 6-2-1-8 female. 2. 39-4/7 weeks gestation. 3. No care. 4. Active labor. 5. History of seizure disorder. 6. Grand multiparity. 7. Urine drug screen positive for marijuana. 8. Tobacco abuse. 9. Normal spontaneous vaginal delivery of a viable male weighing 8 pounds, 19-1/2 inches long with scores of 6 at one minute and 8 at five minutes. 10.Chronic anemia of . [facility] /[id number]
[2020-07-31 14:47] LABS: C.TRACHOMATIS BY TMA Negative (Negative); N.GONORRHOEAE BY TMA Negative (Negative)
== END 2020-07-29 14:29 | disposition home or self-care (01) | DRG 807 ==
LOC: DL.OBCHECK 02:00 → DL.OB 02:53 → OBSVTOIN 04:53
PROVIDERS: ADMIT Obstetrics & Gynecology; ATTEND Family Medicine
PROC: 10E0XZZ Delivery of Products of Conception, External Approach (ICD-10-PCS; principal; 2020-07-28)
PROC: 10907ZC Drainage of Amniotic Fluid, Therapeutic from Products of Conception, Via Natural or Artificial Opening (ICD-10-PCS; 2020-07-28)
DX: O99.334 Smoking (tobacco) complicating childbirth (principal); Z37.0 Single live birth; F17.210 Nicotine dependence, cigarettes, uncomplicated; Z3A.39 39 weeks gestation of pregnancy; O99.02 Anemia complicating childbirth; D64.9 Anemia, unspecified; Z20.822 Contact with and (suspected) exposure to COVID-19; Z90.49 Acquired absence of other specified parts of digestive tract; O99.324 Drug use complicating childbirth; F12.90 Cannabis use, unspecified, uncomplicated
CPT/HCPCS: 36415; 59409; 76815; 80305-QW; 81001; 85027; 86592; 86762; 86803; 86850; 86900; 86901; 87081; 87210; 87340; 87389; 87491; 87591; 90471; 90715; A9270-GY; J0290; J2590; J7120; U0002

== ENCOUNTER 2020-08-01 05:24 | Emergency (ER) | payer MEDICAID ==
[2020-08-01] MEDS ORDERED: LORazepam 2 MG/ML SDV IM ONE ×2 (05:26→05:48)
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
== END 2020-08-01 10:53 | disposition home or self-care (01) ==
LOC: DL.ED 05:24
DX: R56.9 Unspecified convulsions (principal)
CPT/HCPCS: 99284; J2060

== ENCOUNTER 2020-08-14 15:33 | Emergency (ER) | payer MEDICAID ==
[2020-08-14] MEDS ORDERED: levETIRAcetam 500 MG Tab PO SCH (16:15)
[2020-08-14 16:29] VITALS: BP 134/79; PULSE 103
[2020-08-14 18:06] LABS: SODIUM,NA 141 mmol/L (136-145)
--- NOTE | 2020-08-14 18:11 | CR ---
PROCEDURE INFORMATION: Exam: XR Left Foot Exam date and time: 08/14/2020 5:44 PM Age: 35 years old Clinical indication: Pain; Foot; Left TECHNIQUE: Imaging protocol: XR Left foot. Views: 3 or more views. COMPARISON: No relevant prior studies available. FINDINGS: Bones/joints: Mildly comminuted, nondisplaced intra-articular fracture of the head of the 5th proximal phalanx extending proximally to the distal metaphysis. No dislocation. Normal bone mineralization. No joint effusion. Joint spaces are maintained. Soft tissues: Mild soft tissue swelling at the 5th toe. No radiopaque foreign body. IMPRESSION: 1. Mildly comminuted, nondisplaced intra-articular fracture of the head of the 5th proximal phalanx extending proximally to the distal metaphysis. 2. Mild soft tissue swelling at the 5th toe.
[2020-08-14] MEDS ORDERED: Ibuprofen 400 MG Tab PO ONE (18:30)
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
== END 2020-08-14 18:53 ==
LOC: DL.ED 15:33
DX: S92.515A Nondisplaced fracture of proximal phalanx of left lesser toe(s), initial encounter for closed fracture (principal); R56.9 Unspecified convulsions; Z79.899 Other long term (current) drug therapy; X58.XXXA Exposure to other specified factors, initial encounter; Y92.009 Unspecified place in unspecified non-institutional (private) residence as the place of occurrence of the external cause
CPT/HCPCS: 36415; 73630-LT; 80053; 80305-QW; 80307; 81001; 85025; 87086; 99284-25; A9270-GY

== ENCOUNTER 2021-02-09 22:00 | Emergency (ER) | payer MEDICAID ==
[2021-02-09 22:48] LABS: AMPHETAMINES,URINE NEGATIVE (NEGATIVE); BARBITURATES,URINE POSITIVE (NEGATIVE); BENZODIAZEPINE,URINE NEGATIVE (NEGATIVE); MDMA (ECSTASY), URINE NEGATIVE (NEGATIVE); METHADONE,URINE NEGATIVE (NEGATIVE); METHAMPHETAMINES,URINE POSITIVE (NEGATIVE); OPIATES,URINE NEGATIVE (NEGATIVE); OXYCODONE,URINE NEGATIVE (NEGATIVE); PHENCYCLIDINE,URINE NEGATIVE (NEGATIVE); TCA,URINE NEGATIVE (NEGATIVE)
[2021-02-09 22:49] LABS: ANION GAP 16.6 mEq/L (7-13); CHLORIDE,CL 102 mmol/L (98-107); SODIUM,NA 142 mmol/L (136-145)
[2021-02-09 23:06] VITALS: BP 151/95; PULSE 93
[2021-02-09] MEDS ORDERED: Phenytoin 100 MG Cap.ER PO ONE (23:13)
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
== END 2021-02-09 23:52 | disposition home or self-care (01) ==
LOC: DL.ED 22:00
DX: G40.909 Epilepsy, unspecified, not intractable, without status epilepticus (principal); R82.5 Elevated urine levels of drugs, medicaments and biological substances; Z79.899 Other long term (current) drug therapy; R79.89 Other specified abnormal findings of blood chemistry
CPT/HCPCS: 36415; 80053; 80185; 80305; 81001; 85025; 99284; A9270

== ENCOUNTER 2021-02-27 16:32 | Emergency (ER) | payer MEDICAID, OTHER ==
[2021-02-27 16:43] VITALS: BP 128/84; PULSE 68
[2021-02-27 17:08] LABS: AMPHETAMINES,URINE NEGATIVE (NEGATIVE); BARBITURATES,URINE NEGATIVE (NEGATIVE); BENZODIAZEPINE,URINE NEGATIVE (NEGATIVE); MDMA (ECSTASY), URINE NEGATIVE (NEGATIVE); METHADONE,URINE NEGATIVE (NEGATIVE); METHAMPHETAMINES,URINE NEGATIVE (NEGATIVE); OPIATES,URINE NEGATIVE (NEGATIVE); OXYCODONE,URINE NEGATIVE (NEGATIVE); PHENCYCLIDINE,URINE NEGATIVE (NEGATIVE); TCA,URINE NEGATIVE (NEGATIVE)
[2021-02-27] MEDS ORDERED: Ibuprofen 800 MG Tab PO ONE (17:08)
[2021-02-27] MEDS ORDERED: Phenytoin 100 MG Cap.ER PO ONE (17:09)
== END 2021-02-27 17:30 | disposition home or self-care (01) ==
LOC: DL.ED 16:32
DX: S40.011A Contusion of right shoulder, initial encounter (principal); S80.02XA Contusion of left knee, initial encounter; R56.9 Unspecified convulsions; Z72.0 Tobacco use
CPT/HCPCS: 80305; 81003; 81025; 99284; A9270

== ENCOUNTER 2021-06-06 14:09 | Emergency (ER) | payer MEDICAID ==
[2021-06-06] MEDS ORDERED: Sodium Chloride 0.9% 10 ML Syringe FLUSH PRN (14:24)
[2021-06-06 14:30] VITALS: BP 126/85; PULSE 68
[2021-06-06 15:05] LABS: ANION GAP 13.9 mEq/L (7-13); CHLORIDE,CL 105 mmol/L (98-107); SODIUM,NA 141 mmol/L (136-145)
[2021-06-06] MEDS ORDERED: Ketorolac 30 MG/ML SDV IVPUSH ONE (16:14)
[2021-06-06] MEDS ORDERED: Doxycycline Monohydrate 100 MG Cap PO ONE (16:23)
[2021-06-06] MEDS ORDERED: Phenytoin 100 MG Cap.ER PO ONE (16:36)
== END 2021-06-06 16:58 | disposition home or self-care (01) ==
LOC: DL.ED 14:09
DX: S00.01XA Abrasion of scalp, initial encounter (principal); L08.9 Local infection of the skin and subcutaneous tissue, unspecified; B85.0 Pediculosis due to Pediculus humanus capitis; F17.210 Nicotine dependence, cigarettes, uncomplicated; Z79.899 Other long term (current) drug therapy; Z90.49 Acquired absence of other specified parts of digestive tract; W01.198A Fall on same level from slipping, tripping and stumbling with subsequent striking against other object, initial encounter
CPT/HCPCS: 36415; 70450; 72125; 80053; 83605; 84703; 85025; 93005; 96374; 99285; A9270; J1885; J3490

== ENCOUNTER 2021-06-08 03:33 | Emergency (ER) | payer MEDICAID ==
[2021-06-08 04:07] VITALS: BP 131/90; PULSE 98
== END 2021-06-08 03:43 | disposition left against medical advice (07) ==
LOC: DL.ED 03:33
DX: G40.909 Epilepsy, unspecified, not intractable, without status epilepticus (principal); Z91.19 Patient's noncompliance with other medical treatment and regimen; Z53.8 Procedure and treatment not carried out for other reasons
CPT/HCPCS: 99283

== ENCOUNTER 2021-07-24 11:17 | Emergency (ER) | payer MEDICAID ==
[2021-07-24] MEDS ORDERED: Sodium Chloride 0.9% 10 ML Syringe FLUSH PRN (11:34)
[2021-07-24 11:37] VITALS: BP 129/95; PULSE 95
[2021-07-24 12:35] LABS: ANION GAP 11.4 mEq/L (7-13); CHLORIDE,CL 104 mmol/L (98-107); SODIUM,NA 140 mmol/L (136-145)
[2021-07-24 12:38] LABS: ESTIMATED GFR > 60
[2021-07-24] MEDS ORDERED: Acetaminophen 500 MG Tab PO ONE (13:58)
== END 2021-07-24 14:18 | disposition home or self-care (01) ==
LOC: DL.ED 11:17
DX: Z00.8 Encounter for other general examination (principal); F17.210 Nicotine dependence, cigarettes, uncomplicated
CPT/HCPCS: 36415; 80053; 81003; 82140; 83605; 83735; 84100; 84443; 85025; 86140; 99284; A9270; J3490

== ENCOUNTER 2021-07-26 23:53 | Emergency (ER) | payer MEDICAID ==
[2021-07-27 01:38] LABS: ANION GAP 9.3 mEq/L (7-13); CHLORIDE,CL 108 mmol/L (98-107); SODIUM,NA 140 mmol/L (136-145)
[2021-07-27 01:47] LABS: AMPHETAMINES,URINE NEGATIVE (NEGATIVE); BARBITURATES,URINE NEGATIVE (NEGATIVE); BENZODIAZEPINE,URINE NEGATIVE (NEGATIVE); MDMA (ECSTASY), URINE NEGATIVE (NEGATIVE); METHADONE,URINE NEGATIVE (NEGATIVE); METHAMPHETAMINES,URINE NEGATIVE (NEGATIVE); OPIATES,URINE NEGATIVE (NEGATIVE); OXYCODONE,URINE NEGATIVE (NEGATIVE); PHENCYCLIDINE,URINE NEGATIVE (NEGATIVE); TCA,URINE NEGATIVE (NEGATIVE)
[2021-07-27 01:51] LABS: ESTIMATED GFR > 60
[2021-07-27 01:52] LABS: ACETAMINOPHEN 0 ug/mL (10-30 (Therapeutic))
[2021-07-27 03:06] VITALS: BP 96/58; PULSE 83
== END 2021-07-27 03:20 | disposition left against medical advice (07) ==
LOC: DL.ED 23:53
DX: F10.10 Alcohol abuse, uncomplicated (principal); Y90.8 Blood alcohol level of 240 mg/100 ml or more
CPT/HCPCS: 36415; 80053; 80143; 80179; 80305-QW; 80307; 81001; 83605; 83735; 85025; 99282; 99284

== ENCOUNTER 2021-07-27 12:35 | Emergency (ER) | payer MEDICAID ==
[2021-07-27 12:58] VITALS: BP 118/82; PULSE 114
[2021-07-27] MEDS ORDERED: Ketorolac 30 MG/ML SDV IM ONE (13:14)
[2021-07-27 13:51] LABS: ANION GAP 7.9 mEq/L (7-13); CHLORIDE,CL 106 mmol/L (98-107); SODIUM,NA 138 mmol/L (136-145)
[2021-07-27 13:56] LABS: ESTIMATED GFR > 60
== END 2021-07-27 14:23 | disposition home or self-care (01) ==
LOC: DL.ED 12:35
DX: S39.92XA Unspecified injury of lower back, initial encounter (principal); Z79.899 Other long term (current) drug therapy; Z90.49 Acquired absence of other specified parts of digestive tract; W19.XXXA Unspecified fall, initial encounter
CPT/HCPCS: 36415; 80053; 83605; 83735; 85025; 86140; 96372; 99283; J1885

== ENCOUNTER 2022-12-15 22:42 | Emergency (ER) | payer MEDICAID ==
[2022-12-15 23:46] VITALS: BP 159/110; PULSE 102
[2022-12-16 00:07] LABS: ANION GAP 10.4 mEq/L (7-13); CALCIUM 8.6 mg/dL (8.5-10.1); CREATININE 0.75 mg/dL (0.55-1.02); EST CRCL DRUG DOSING (CG) 94.21 mL/min; POTASSIUM,K 3.4 mmol/L (3.5-5.1)
[2022-12-16] MEDS ORDERED: Ondansetron 4 MG/2 ML SDV IVPUSH ONE (00:11)
[2022-12-16] MEDS ORDERED: Sodium Chloride 0.9% 1,000 ML IV SCH ×2 (00:15→01:30)
== END 2022-12-16 06:24 | disposition home or self-care (01) ==
LOC: DL.ED 22:42
DX: M25.552 Pain in left hip (principal); F10.10 Alcohol abuse, uncomplicated; R11.11 Vomiting without nausea; Z79.899 Other long term (current) drug therapy; Y90.6 Blood alcohol level of 120-199 mg/100 ml; W18.30XA Fall on same level, unspecified, initial encounter; Y92.89 Other specified places as the place of occurrence of the external cause
CPT/HCPCS: 36415; 73502; 80048; 80307; 96361; 96374; 99284; J2405; J7030

== ENCOUNTER 2023-01-30 15:46 | Emergency (ER) | payer MEDICAID | END 2023-01-30 15:55 | disposition left against medical advice (07) | LOC: DL.ED 15:46 | DX: Z53.21 Procedure and treatment not carried out due to patient leaving prior to being seen by health care provider (principal) ==

== ENCOUNTER 2023-05-01 13:45 | Emergency (ER) | payer MEDICAID, OTHER ==
[2023-05-01] MEDS: Sodium Chloride 0.9% 1,000 ML IV ONE (13:20)
[2023-05-01] MEDS: levETIRAcetam in NaCl (iso-os) 1,000 MG in Premix Bag 1 BAG IV ONE (13:20)
[2023-05-01 13:25] LABS: BASOPHILS PERCENT AUTO 0.2 % (0.0-1.0); EOSINOPHILS PERCENT AUTO 0.9 % (1.0-3.0); HEMATOCRIT 39.7 % (37.0-47.0); HEMOGLOBIN 12.9 g/dL (12.0-16.0); LYMPHOCYTES PERCENT AUTO 24.9 % (20.5-50.1); MEAN CORPUSCULAR HGB CONC 32.5 g/dL (33.0-35.0); MEAN CORPUSCULAR VOLUME 83.1 fL (80-100); MONOCYTES PERCENT AUTO 6.7 % (2-8); NEUTROPHILS PERCENT AUTO 67.3 % (42.2-75.2); PLATELET COUNT,PLT 372 10^3/uL (150-450); RED BLOOD CELL COUNT 4.78 10^6/uL (4.2-5.4); WHITE BLOOD CELL COUNT,WBC 8.5 10^3/uL (5.0-10.0)
[2023-05-01] MEDS: Sodium Chloride 0.9% 10 ML Syringe FLUSH PRN (13:29)
[2023-05-01 13:35] VITALS: BP 118/82; PULSE 56
[2023-05-01 13:48] LABS: ALBUMIN 3.9 g/dL (3.4-5.0); ANION GAP 17.4 mEq/L (7-13); BILIRUBIN TOTAL 0.3 mg/dL (0.2-1.0); BUN/CREATININE RATIO 12.9 (No establ ref range); CALCIUM 8.7 mg/dL (8.5-10.1); CREATININE 0.7 mg/dL (0.55-1.02); EST CRCL DRUG DOSING (CG) 100.94 mL/min; POTASSIUM,K 3.4 mmol/L (3.5-5.1); PROTEIN TOTAL,TP 7.9 g/dL (6.4-8.2)
[2023-05-01] MEDS ORDERED: Phenytoin 250 MG/5 ML SDV IV ONE (14:10)
== END 2023-05-01 14:55 | disposition home or self-care (01) ==
LOC: DL.ED 13:45
DX: G40.409 Other generalized epilepsy and epileptic syndromes, not intractable, without status epilepticus (principal); Z79.899 Other long term (current) drug therapy
CPT/HCPCS: 36415; 80053; 80185; 85025; 96374; 99284-25; J1953; J3490; J7030

== ENCOUNTER 2023-06-18 16:21 | Emergency (ER) | payer OTHER ==
[2023-06-18] MEDS: Ketamine 500 mg/10 ML MDV IV ONE ×2 (16:19→16:25)
[2023-06-18] MEDS: levETIRAcetam in NaCl (iso-os) 1,500 MG in Premix Bag 1 BAG IV ONE (16:37)
[2023-06-18] MEDS: Sodium Chloride 0.9% 10 ML Syringe FLUSH PRN (16:37)
[2023-06-18 16:40] LABS: BASOPHILS PERCENT AUTO 0.3 % (0.0-1.0); EOSINOPHILS PERCENT AUTO 0.8 % (1.0-3.0); HEMATOCRIT 43.1 % (37.0-47.0); LYMPHOCYTES PERCENT AUTO 14.3 % (20.5-50.1); MEAN CORPUSCULAR HEMOGLOBIN 27.1 pg (27.0-34.0); MEAN CORPUSCULAR HGB CONC 32.5 g/dL (33.0-35.0); MEAN CORPUSCULAR VOLUME 83.5 fL (80-100); MONOCYTES PERCENT AUTO 7.7 % (2-8); NEUTROPHILS PERCENT AUTO 76.9 % (42.2-75.2); PLATELET COUNT,PLT 413 10^3/uL (150-450); RED BLOOD CELL COUNT 5.16 10^6/uL (4.2-5.4)
[2023-06-18 16:51] VITALS: BP 139/95; PULSE 114
[2023-06-18 16:53] LABS: A/G RATIO 0.9; ALANINE AMINOTRANSFERASE,ALT 32 U/L (14-59); ALBUMIN 4.2 g/dL (3.4-5.0); ALKALINE PHOSPHATASE 126 U/L (46-116); ANION GAP 23.3 mEq/L (7-13); ASPARTATE AMNIOTRANSFERASE,AST 17 U/L (15-37); BILIRUBIN TOTAL 0.4 mg/dL (0.2-1.0); BLOOD UREA NITROGEN,BUN 6 mg/dL (7-18); BUN/CREATININE RATIO 5.7 (No establ ref range); C-REACTIVE PROTEIN 1.03 ng/dL (<=0.50); CARBON DIOXIDE,CO2 20 mmol/L (21-32); CHLORIDE,CL 102 mmol/L (98-107); CREATININE 1.06 mg/dL (0.55-1.02); EST CRCL DRUG DOSING (CG) 74.73 mL/min; GLUCOSE RANDOM 126 mg/dL (70-99); POTASSIUM,K 3.3 mmol/L (3.5-5.1); PROTEIN TOTAL,TP 8.9 g/dL (6.4-8.2); SODIUM,NA 142 mmol/L (136-145)
[2023-06-18 16:55] LABS: ESTIMATED GFR 70 mL/min (>=60); ETHANOL BLOOD MEDICAL < 3 mg/dL (0)
[2023-06-18] MEDS: Sodium Chloride 0.9% 1,000 ML IV ONE ×2 (17:00→17:21)
[2023-06-18 17:07] LABS: LACTIC ACID 8.1 mmol/L (0.4-2.0)
[2023-06-18 17:08] LABS: AMPHETAMINES,URINE POSITIVE (NEGATIVE); BARBITURATES,URINE POSITIVE (NEGATIVE); BENZODIAZEPINE,URINE NEGATIVE (NEGATIVE); MDMA (ECSTASY), URINE NEGATIVE (NEGATIVE); METHADONE,URINE NEGATIVE (NEGATIVE); METHAMPHETAMINES,URINE POSITIVE (NEGATIVE); OPIATES,URINE NEGATIVE (NEGATIVE); OXYCODONE,URINE NEGATIVE (NEGATIVE); PHENCYCLIDINE,URINE NEGATIVE (NEGATIVE); TCA,URINE NEGATIVE (NEGATIVE)
[2023-06-18 17:11] LABS: BILIRUBIN,URINE SMALL (NEGATIVE); COLOR,URINE YELLOW (YELLOW); GLUCOSE,URINE NEGATIVE (NEGATIVE); KETONES,URINE NEGATIVE (NEGATIVE); LEUKOCYTE ESTERASE,URINE NEGATIVE (NEGATIVE); NITRITE,URINE NEGATIVE (NEGATIVE); OCCULT BLOOD,URINE NEGATIVE (NEGATIVE); PROTEIN,URINE 100 (NEGATIVE); UROBILINOGEN,URINE 0.2 mg/dL (0.2-1.0)
[2023-06-18 17:14] LABS: APPEARANCE,URINE SLIGHTLY CLOUDY (CLEAR)
[2023-06-18 17:15] LABS: RBC,URINE NOT SEEN /HPF (0-5); WBC,URINE 0-5 /HPF (0-5/HPF)
[2023-06-18 17:16] LABS: BACTERIA,URINE FEW /HPF (0-FEW/HPF); EPITHELIAL CELLS,URINE MANY /HPF (NOT SEEN); HYALINE CASTS,URINE FEW; MUCUS,URINE MODERATE /LPF (NOT SEEN)
== END 2023-06-18 17:52 | disposition home or self-care (01) ==
LOC: DL.ED 16:21
DX: R56.9 Unspecified convulsions (principal); F15.10 Other stimulant abuse, uncomplicated; Z90.49 Acquired absence of other specified parts of digestive tract; Z79.899 Other long term (current) drug therapy
CPT/HCPCS: 36415; 80053; 80305; 80307; 81001; 81025; 83605; 85025; 86140; 96361; 96374; 96375; 99284; 99285; C1758; J1953; J3490; J7030

== ENCOUNTER 2023-07-08 19:59 | Emergency (ER) | payer OTHER ==
[2023-07-08 21:48] VITALS: BP 149/92; PULSE 77
[2023-07-08] MEDS: cefTRIAXone 1 GM Vial ONE (22:17)
[2023-07-08] MEDS: Ketorolac 30 MG/ML SDV ONE (22:17)
[2023-07-08] MEDS: HYDROmorphone 0.5 MG/0.5 ML Syringe IM ONE (22:31)
[2023-07-08] MEDS: Triamcinolone Acetonide 0.1% Dental Paste 5 GM Tube DENT ONE (22:31)
== END 2023-07-08 22:37 | disposition home or self-care (01) ==
LOC: DL.ED 19:59
DX: S02.5XXB Fracture of tooth (traumatic), initial encounter for open fracture (principal); Z79.899 Other long term (current) drug therapy; Z90.49 Acquired absence of other specified parts of digestive tract; X58.XXXA Exposure to other specified factors, initial encounter
CPT/HCPCS: 96372; 99282; A9270-GY; J1170

== ENCOUNTER 2023-07-30 21:05 | Emergency (ER) | payer MEDICAID ==
[2023-07-30] MEDS: Ibuprofen 400 MG Tab PO ONE (22:35)
[2023-07-30 23:28] VITALS: BP 136/78; PULSE 70
== END 2023-07-30 23:41 | disposition home or self-care (01) ==
LOC: DL.ED 21:05
DX: M25.562 Pain in left knee (principal); Z90.49 Acquired absence of other specified parts of digestive tract; Z79.899 Other long term (current) drug therapy
CPT/HCPCS: 73562-LT; 73590-LT; 99283; A9270-GY

== ENCOUNTER 2023-09-11 12:29 | Emergency (ER) | payer MEDICAID, OTHER ==
[2023-09-11 13:31] VITALS: BP 127/89; PULSE 68
== END 2023-09-11 13:59 | disposition home or self-care (01) ==
LOC: DL.ED 12:29
DX: S83.92XA Sprain of unspecified site of left knee, initial encounter (principal); S80.02XA Contusion of left knee, initial encounter; Z90.49 Acquired absence of other specified parts of digestive tract; V13.9XXA Unspecified pedal cyclist injured in collision with car, pick-up truck or van in traffic accident, initial encounter
CPT/HCPCS: 73030-LT; 73562-LT; 99284

== ENCOUNTER 2023-10-20 22:11 | Emergency (ER) | payer MEDICAID ==
[2023-10-20 22:58] VITALS: BP 127/81; PULSE 90
[2023-10-20] MEDS: Orphenadrine 60 MG/2 ML Inj IV ONE (23:43)
[2023-10-20] MEDS: Acetaminophen 325 MG Tab PO ONE (23:43)
[2023-10-20] MEDS: Sodium Chloride 0.9% 1,000 ML IV ONE (23:43)
[2023-10-20 23:52] LABS: APPEARANCE,URINE SLIGHTLY CLOUDY (CLEAR); BILIRUBIN,URINE NEGATIVE (NEGATIVE); COLOR,URINE YELLOW (YELLOW); GLUCOSE,URINE NEGATIVE (NEGATIVE); KETONES,URINE NEGATIVE (NEGATIVE); LEUKOCYTE ESTERASE,URINE MODERATE (NEGATIVE); NITRITE,URINE NEGATIVE (NEGATIVE); OCCULT BLOOD,URINE TRACE-INTACT (NEGATIVE); PROTEIN,URINE NEGATIVE (NEGATIVE); UROBILINOGEN,URINE 0.2 mg/dL (0.2-1.0)
[2023-10-20 23:56] LABS: AMPHETAMINES,URINE NEGATIVE (NEGATIVE); BARBITURATES,URINE POSITIVE (NEGATIVE); BENZODIAZEPINE,URINE NEGATIVE (NEGATIVE); MDMA (ECSTASY), URINE NEGATIVE (NEGATIVE); METHADONE,URINE NEGATIVE (NEGATIVE); METHAMPHETAMINES,URINE NEGATIVE (NEGATIVE); OPIATES,URINE NEGATIVE (NEGATIVE); OXYCODONE,URINE NEGATIVE (NEGATIVE); PHENCYCLIDINE,URINE NEGATIVE (NEGATIVE); TCA,URINE NEGATIVE (NEGATIVE)
[2023-10-21 00:02] LABS: BACTERIA,URINE MODERATE /HPF (0-FEW/HPF); EPITHELIAL CELLS,URINE FEW /HPF (NOT SEEN); WBC,URINE 75-100 /HPF (0-5/HPF)
[2023-10-21 00:58] LABS: BASOPHILS PERCENT AUTO 0.2 % (0.0-1.0); EOSINOPHILS PERCENT AUTO 0.9 % (1.0-3.0); HEMATOCRIT 38.2 % (37.0-47.0); HEMOGLOBIN 12.5 g/dL (12.0-16.0); LYMPHOCYTES PERCENT AUTO 15.4 % (20.5-50.1); MEAN CORPUSCULAR HEMOGLOBIN 28.3 pg (27.0-34.0); MEAN CORPUSCULAR HGB CONC 32.7 g/dL (33.0-35.0); MEAN CORPUSCULAR VOLUME 86.6 fL (80-100); MONOCYTES PERCENT AUTO 10.4 % (2-8); NEUTROPHILS PERCENT AUTO 73.1 % (42.2-75.2); PLATELET COUNT,PLT 313 10^3/uL (150-450); RED BLOOD CELL COUNT 4.41 10^6/uL (4.2-5.4); WHITE BLOOD CELL COUNT,WBC 13.1 10^3/uL (5.0-10.0)
[2023-10-21 01:14] LABS: ALBUMIN 3.3 g/dL (3.4-5.0); ANION GAP 12.8 mEq/L (7-13); BILIRUBIN TOTAL 0.3 mg/dL (0.2-1.0); BUN/CREATININE RATIO 14.1 (No establ ref range); CALCIUM 8.3 mg/dL (8.5-10.1); CREATININE 0.64 mg/dL (0.55-1.02); EST CRCL DRUG DOSING (CG) 109.35 mL/min; POTASSIUM,K 3.8 mmol/L (3.5-5.1); PROTEIN TOTAL,TP 7.2 g/dL (6.4-8.2)
[2023-10-21 01:15] LABS: A/G RATIO 0.85
[2023-10-21] MEDS: cefTRIAXone 1 GM Vial IVPUSH ONE (01:45)
== END 2023-10-21 02:58 | disposition home or self-care (01) ==
LOC: DL.ED 22:11
DX: M54.6 Pain in thoracic spine (principal); G89.29 Other chronic pain; N39.0 Urinary tract infection, site not specified; N20.0 Calculus of kidney; Z90.49 Acquired absence of other specified parts of digestive tract; Z79.899 Other long term (current) drug therapy
CPT/HCPCS: 36415; 71250; 74176; 80053; 80305-QW; 81001; 81025; 85025; 87086; 87088; 87186; 96361; 96374; 96375; 99284; 99284-25; A9270-GY; J0696; J2360; J7030

== ENCOUNTER 2023-11-05 17:19 | Emergency (ER) | payer MEDICAID ==
[2023-11-05 17:30] LABS: BASOPHILS PERCENT AUTO 0.2 % (0.0-1.0); EOSINOPHILS PERCENT AUTO 1.6 % (1.0-3.0); HEMATOCRIT 41.6 % (37.0-47.0); HEMOGLOBIN 13.8 g/dL (12.0-16.0); LYMPHOCYTES PERCENT AUTO 21.8 % (20.5-50.1); MEAN CORPUSCULAR HEMOGLOBIN 28.8 pg (27.0-34.0); MEAN CORPUSCULAR HGB CONC 33.2 g/dL (33.0-35.0); MEAN CORPUSCULAR VOLUME 86.8 fL (80-100); MONOCYTES PERCENT AUTO 5.7 % (2-8); NEUTROPHILS PERCENT AUTO 70.7 % (42.2-75.2); PLATELET COUNT,PLT 355 10^3/uL (150-450); RED BLOOD CELL COUNT 4.79 10^6/uL (4.2-5.4); WHITE BLOOD CELL COUNT,WBC 9.6 10^3/uL (5.0-10.0)
[2023-11-05 17:56] LABS: A/G RATIO 0.9; ALANINE AMINOTRANSFERASE,ALT 53 U/L (14-59); ALBUMIN 3.6 g/dL (3.4-5.0); ALKALINE PHOSPHATASE 110 U/L (46-116); ANION GAP 13.7 mEq/L (7-13); ASPARTATE AMNIOTRANSFERASE,AST 24 U/L (15-37); BILIRUBIN TOTAL 0.3 mg/dL (0.2-1.0); BLOOD UREA NITROGEN,BUN 11 mg/dL (7-18); BUN/CREATININE RATIO 13.1 (No establ ref range); CALCIUM 8.7 mg/dL (8.5-10.1); CARBON DIOXIDE,CO2 23 mmol/L (21-32); CHLORIDE,CL 105 mmol/L (98-107); CREATININE 0.84 mg/dL (0.55-1.02); EST CRCL DRUG DOSING (CG) 83.31 mL/min; GLUCOSE RANDOM 115 mg/dL (70-99); MAGNESIUM 1.7 mg/dL (1.8-2.4); POTASSIUM,K 3.7 mmol/L (3.5-5.1); PROTEIN TOTAL,TP 7.8 g/dL (6.4-8.2); SODIUM,NA 138 mmol/L (136-145)
[2023-11-05 17:58] LABS: ESTIMATED GFR 92 mL/min (>=60); ETHANOL BLOOD MEDICAL < 3 mg/dL (0)
[2023-11-05] MEDS: Phenytoin 100 MG Cap.ER PO ONE (19:04)
[2023-11-05] MEDS: levETIRAcetam 500 MG Tab PO STA (19:05)
[2023-11-05] MEDS: Ketorolac 30 MG/ML SDV IVPUSH ONE (19:18)
[2023-11-05 20:00] LABS: AMPHETAMINES,URINE NEGATIVE (NEGATIVE); BARBITURATES,URINE NEGATIVE (NEGATIVE); BENZODIAZEPINE,URINE NEGATIVE (NEGATIVE); MDMA (ECSTASY), URINE NEGATIVE (NEGATIVE); METHADONE,URINE NEGATIVE (NEGATIVE); METHAMPHETAMINES,URINE NEGATIVE (NEGATIVE); OPIATES,URINE NEGATIVE (NEGATIVE); OXYCODONE,URINE NEGATIVE (NEGATIVE); PHENCYCLIDINE,URINE NEGATIVE (NEGATIVE); TCA,URINE NEGATIVE (NEGATIVE)
[2023-11-05 20:25] VITALS: BP 110/66; PULSE 65
== END 2023-11-05 20:19 | disposition home or self-care (01) ==
LOC: DL.ED 17:19
DX: G40.909 Epilepsy, unspecified, not intractable, without status epilepticus (principal); E83.42 Hypomagnesemia; Z79.899 Other long term (current) drug therapy; Z90.49 Acquired absence of other specified parts of digestive tract
CPT/HCPCS: 36415; 70450; 80053; 80305-QW; 80307; 82947; 83735; 85025; 93005; 93010; 96365; 96375; 99284; 99285-25; A9270-GY; J1885; J3475

== ENCOUNTER 2024-05-13 12:02 | Emergency (ER) | payer MEDICAID ==
[2024-05-13 12:11] VITALS: BP 102/50; PULSE 66
== END 2024-05-13 12:32 | disposition home or self-care (01) ==
LOC: DL.ED 12:02
DX: R25.1 Tremor, unspecified (principal); Z86.69 Personal history of other diseases of the nervous system and sense organs; Z90.49 Acquired absence of other specified parts of digestive tract; Z79.899 Other long term (current) drug therapy
CPT/HCPCS: 99283; 99284

== ENCOUNTER 2024-07-05 10:54 | Emergency (ER) | payer MEDICAID ==
[2024-07-05] MEDS ORDERED: Sodium Chloride 0.9% 10 ML Syringe FLUSH PRN (11:04)
[2024-07-05 11:12] LABS: BASOPHILS PERCENT AUTO 0.2 % (0.0-1.0); EOSINOPHILS PERCENT AUTO 2.5 % (1.0-3.0); HEMOGLOBIN 14.9 g/dL (12.0-16.0); LYMPHOCYTES PERCENT AUTO 29.7 % (20.5-50.1); MEAN CORPUSCULAR HEMOGLOBIN 29.4 pg (27.0-34.0); MEAN CORPUSCULAR HGB CONC 33.9 g/dL (33.0-35.0); NEUTROPHILS PERCENT AUTO 58.6 % (42.2-75.2); PLATELET COUNT,PLT 390 10^3/uL (150-450); RED BLOOD CELL COUNT 5.06 10^6/uL (4.2-5.4); WHITE BLOOD CELL COUNT,WBC 11.2 10^3/uL (5.0-10.0)
[2024-07-05 11:25] LABS: INR 0.9 (0.9-1.2); PROTHROMBIN TIME 9.3 SEC (9.0-12.0); PTT,PARTIAL THROMBOPLSTIN TIME 25.9 SEC (22.0-34.0)
[2024-07-05 11:28] LABS: A/G RATIO 0.8; ALBUMIN 3.6 g/dL (3.4-5.0); ANION GAP 12.6 mEq/L (7-13); BILIRUBIN TOTAL 0.3 mg/dL (0.2-1.0); BUN/CREATININE RATIO 17.2 (No establ ref range); CALCIUM 8.8 mg/dL (8.5-10.1); CREATININE 0.64 mg/dL (0.55-1.02); EST CRCL DRUG DOSING (CG) 108.3 mL/min; MAGNESIUM 1.9 mg/dL (1.8-2.4); POTASSIUM,K 3.6 mmol/L (3.5-5.1)
[2024-07-05 12:03] VITALS: BP 115/76; PULSE 57
[2024-07-05] MEDS: Ketorolac 30 MG/ML SDV IM ONE (12:27)
== END 2024-07-05 12:34 | disposition home or self-care (01) ==
LOC: DL.ED 10:54
DX: M94.0 Chondrocostal junction syndrome [Tietze] (principal); Z79.899 Other long term (current) drug therapy; Z90.49 Acquired absence of other specified parts of digestive tract; Z87.891 Personal history of nicotine dependence
CPT/HCPCS: 36415; 71045; 80053; 83735; 84484; 85025; 85610; 85730; 93005; 96372; 99285; J1885; 93010; 99283

== ENCOUNTER 2024-07-20 13:47 | Emergency (ER) | payer MEDICAID ==
[2024-07-20] MEDS: Ondansetron 4 MG/2 ML SDV IVPUSH ONE (14:00)
[2024-07-20] MEDS ORDERED: Sodium Chloride 0.9% 10 ML Syringe FLUSH PRN (14:00)
[2024-07-20] MEDS: Sodium Chloride 0.9% 1,000 ML IV ONE (14:03)
[2024-07-20 14:13] LABS: BASOPHILS PERCENT AUTO 0.1 % (0.0-1.0); EOSINOPHILS PERCENT AUTO 1.2 % (1.0-3.0); HEMATOCRIT 44.1 % (37.0-47.0); HEMOGLOBIN 14.9 g/dL (12.0-16.0); LYMPHOCYTES PERCENT AUTO 9.3 % (20.5-50.1); MEAN CORPUSCULAR HEMOGLOBIN 29.7 pg (27.0-34.0); MEAN CORPUSCULAR HGB CONC 33.8 g/dL (33.0-35.0); MEAN CORPUSCULAR VOLUME 87.8 fL (80-100); MONOCYTES PERCENT AUTO 5.5 % (2-8); NEUTROPHILS PERCENT AUTO 83.9 % (42.2-75.2); PLATELET COUNT,PLT 402 10^3/uL (150-450); RED BLOOD CELL COUNT 5.02 10^6/uL (4.2-5.4); WHITE BLOOD CELL COUNT,WBC 14.1 10^3/uL (5.0-10.0)
[2024-07-20 14:18] LABS: A/G RATIO 0.9; ALANINE AMINOTRANSFERASE,ALT 41 U/L (14-59); ALKALINE PHOSPHATASE 125 U/L (46-116); ANION GAP 12.9 mEq/L (7-13); ASPARTATE AMNIOTRANSFERASE,AST 23 U/L (15-37); BILIRUBIN TOTAL 0.3 mg/dL (0.2-1.0); BLOOD UREA NITROGEN,BUN 10 mg/dL (7-18); BUN/CREATININE RATIO 14.5 (No establ ref range); CALCIUM 9.1 mg/dL (8.5-10.1); CARBON DIOXIDE,CO2 26 mmol/L (21-32); CHLORIDE,CL 104 mmol/L (98-107); CREATININE 0.69 mg/dL (0.55-1.02); ESTIMATED GFR 115 mL/min (>=60); GLUCOSE RANDOM 92 mg/dL (70-99); MAGNESIUM 1.8 mg/dL (1.8-2.4); POTASSIUM,K 3.9 mmol/L (3.5-5.1); PROTEIN TOTAL,TP 8.5 g/dL (6.4-8.2); SODIUM,NA 139 mmol/L (136-145)
[2024-07-20 14:29] LABS: C-REACTIVE PROTEIN 0.5 ng/dL (<=0.50)
[2024-07-20 14:33] LABS: APPEARANCE,URINE CLEAR (CLEAR); BILIRUBIN,URINE NEGATIVE (NEGATIVE); COLOR,URINE YELLOW (YELLOW); GLUCOSE,URINE NEGATIVE (NEGATIVE); KETONES,URINE NEGATIVE (NEGATIVE); LEUKOCYTE ESTERASE,URINE NEGATIVE (NEGATIVE); NITRITE,URINE NEGATIVE (NEGATIVE); OCCULT BLOOD,URINE NEGATIVE (NEGATIVE); PH,URINE 6.5 (5.0-9.0); PROTEIN,URINE NEGATIVE (NEGATIVE); UROBILINOGEN,URINE 0.2 mg/dL (0.2-1.0)
[2024-07-20 14:56] VITALS: BP 120/72; PULSE 57
== END 2024-07-20 15:20 | disposition home or self-care (01) ==
LOC: DL.ED 13:47
DX: E86.0 Dehydration (principal); Z79.899 Other long term (current) drug therapy
CPT/HCPCS: 36415; 80053; 81003; 83605; 83690; 83735; 85025; 86140; 96361; 96374; 99284-25; J2405; J7030

== ENCOUNTER 2024-09-22 19:56 | Emergency (ER) | payer MEDICAID ==
[2024-09-22 20:22] LABS: BASOPHILS PERCENT AUTO 0.3 % (0.0-1.0); EOSINOPHILS PERCENT AUTO 2.7 % (1.0-3.0); LYMPHOCYTES PERCENT AUTO 25.5 % (20.5-50.1); MONOCYTES PERCENT AUTO 8.1 % (2-8); NEUTROPHILS PERCENT AUTO 63.4 % (42.2-75.2); PLATELET COUNT,PLT 346 10^3/uL (150-450); RED BLOOD CELL COUNT 4.56 10^6/uL (4.2-5.4); WHITE BLOOD CELL COUNT,WBC 11.7 10^3/uL (5.0-10.0)
[2024-09-22 20:39] LABS: A/G RATIO 0.9; ALANINE AMINOTRANSFERASE,ALT 34 U/L (14-59); ASPARTATE AMNIOTRANSFERASE,AST 17 U/L (15-37); BILIRUBIN TOTAL 0.2 mg/dL (0.2-1.0); BLOOD UREA NITROGEN,BUN 14 mg/dL (7-18); CARBON DIOXIDE,CO2 28 mmol/L (21-32); CHLORIDE,CL 104 mmol/L (98-107); CREATININE 0.72 mg/dL (0.55-1.02); EST CRCL DRUG DOSING (CG) 96.26 mL/min; GLUCOSE RANDOM 94 mg/dL (70-99); POTASSIUM,K 3.6 mmol/L (3.5-5.1); PROTEIN TOTAL,TP 7.5 g/dL (6.4-8.2); SODIUM,NA 140 mmol/L (136-145)
[2024-09-22 20:40] LABS: ESTIMATED GFR 110 mL/min (>=60)
[2024-09-22 20:43] LABS: HCG QUALITATIVE,SERUM NEGATIVE (NEGATIVE)
[2024-09-22] MEDS: Take Home: Acetaminophen/HYDROcodone 325-5 MG, 5 Tab Pack PO ONE (21:58)
[2024-09-22 22:47] VITALS: BP 140/81; PULSE 49
== END 2024-09-22 22:05 | disposition home or self-care (01) ==
LOC: DL.ED 19:56
DX: S83.92XA Sprain of unspecified site of left knee, initial encounter (principal); M62.838 Other muscle spasm; Z90.49 Acquired absence of other specified parts of digestive tract; Z79.899 Other long term (current) drug therapy; W19.XXXA Unspecified fall, initial encounter; Y99.0 Civilian activity done for income or pay
CPT/HCPCS: 36415; 73562; 80053; 83735; 84703; 85025; 96360; 99284; A9270; J7030

== ENCOUNTER 2024-09-29 14:40 | Emergency (ER) | payer MEDICAID ==
[2024-09-29 15:15] LABS: BASOPHILS PERCENT AUTO 0.4 % (0.0-1.0); EOSINOPHILS PERCENT AUTO 3.3 % (1.0-3.0); LYMPHOCYTES PERCENT AUTO 25.8 % (20.5-50.1); MONOCYTES PERCENT AUTO 8.4 % (2-8); NEUTROPHILS PERCENT AUTO 62.1 % (42.2-75.2); PLATELET COUNT,PLT 215 10^3/uL (150-450); RED BLOOD CELL COUNT 4.66 10^6/uL (4.2-5.4); WHITE BLOOD CELL COUNT,WBC 8.4 10^3/uL (5.0-10.0)
[2024-09-29 15:29] LABS: APPEARANCE,URINE CLEAR (CLEAR); GLUCOSE,URINE NEGATIVE (NEGATIVE); OCCULT BLOOD,URINE NEGATIVE (NEGATIVE)
[2024-09-29 15:33] LABS: AMPHETAMINES,URINE NEGATIVE (NEGATIVE); BARBITURATES,URINE NEGATIVE (NEGATIVE); MDMA (ECSTASY), URINE NEGATIVE (NEGATIVE); METHAMPHETAMINES,URINE NEGATIVE (NEGATIVE); OPIATES,URINE NEGATIVE (NEGATIVE); OXYCODONE,URINE NEGATIVE (NEGATIVE); PHENCYCLIDINE,URINE NEGATIVE (NEGATIVE); TCA,URINE NEGATIVE (NEGATIVE)
[2024-09-29 15:37] LABS: A/G RATIO 0.9; ALANINE AMINOTRANSFERASE,ALT 30 U/L (14-59); ASPARTATE AMNIOTRANSFERASE,AST 19 U/L (15-37); BILIRUBIN TOTAL 0.3 mg/dL (0.2-1.0); BLOOD UREA NITROGEN,BUN 8 mg/dL (7-18); CARBON DIOXIDE,CO2 30 mmol/L (21-32); CHLORIDE,CL 107 mmol/L (98-107); CREATININE 0.57 mg/dL (0.55-1.02); EST CRCL DRUG DOSING (CG) 116.69 mL/min; ESTIMATED GFR 120 mL/min (>=60); ETHANOL BLOOD MEDICAL < 3 mg/dL (0); GLUCOSE RANDOM 87 mg/dL (70-99); POTASSIUM,K 4.0 mmol/L (3.5-5.1); PROTEIN TOTAL,TP 7.2 g/dL (6.4-8.2); SODIUM,NA 141 mmol/L (136-145)
[2024-09-29 15:41] LABS: LACTIC ACID 0.8 mmol/L (0.4-2.0)
[2024-09-29] MEDS: Sodium Chloride 0.9% 10 ML Syringe FLUSH PRN (16:04)
[2024-09-29] MEDS: Fosphenytoin 1,000 MG.PE in Sodium Chloride 0.9% 50 ML IV ONE (16:32)
[2024-09-29 17:54] VITALS: BP 131/72; PULSE 73
[2024-10-03 05:46] LABS: KEPPRA 32.9 ug/mL (10.0-40.0)
== END 2024-09-29 17:30 | disposition home or self-care (01) ==
LOC: DL.ED 14:40
DX: G40.909 Epilepsy, unspecified, not intractable, without status epilepticus (principal); F41.9 Anxiety disorder, unspecified; R84.2 Abnormal level of other drugs, medicaments and biological substances in specimens from respiratory organs and thorax; Z79.899 Other long term (current) drug therapy; Z90.49 Acquired absence of other specified parts of digestive tract
CPT/HCPCS: 36415; 80053; 80177; 80185; 80305; 80307; 81003; 83605; 83735; 85025; 96365; 96367; 96375; 99284; J1165; J1953; J7030; Q2009